=== PATIENT | female | born 1995 | race Caucasian/White ===

== ENCOUNTER 2019-08-29 01:25 | Day surgery (SDC) | payer OTHER, SELFPAY ==
[2019-08-23 15:31] VITALS: BMI 31.8
[2019-08-29 08:40] VITALS: BP 149/103; PULSE 86; RESP 18; TEMP 36.6; O2SAT 100
[2019-08-29 09:13] VITALS: BMI 32.0
--- NOTE | 2019-08-29 09:14 | WPDANESEPPF ---
Anes - Initial Pre Proc Eval Procedure: Operation Date: 08/29/19 10:00 Proposed Procedures p Esophagogastroduodenoscopy - Rustam Frias MD Date/Time: 08/29/19 09:14 Surgeon: Rustam Frias MD Pre Op Diagnosis: Dysphagia Patient Data Age: 24 Gender: F Height: 5 ft 9 in Weight: 98 kg Allergies Allergy/AdvReac Type Severity Reaction Status Date / Time artifical vitamin d Allergy Mild rash Uncoded 08/29/19 09:03 bees Allergy Mild rash Uncoded 08/29/19 09:03 Home Medications Medication Instructions Recorded Confirmed Type albuterol sulfate 90 mcg/actuation 1 puff INHALATION Q4H PRN #18 gm 07/18/19 08/29/19 Rx aerosol inhaler fluticasone propionate 50 1 spray NASAL DAILY 07/18/19 08/29/19 History mcg/actuation nasal spray,suspension levothyroxine 112 mcg tablet 112 mcg PO .COMPLEX #34 tablet 07/18/19 08/29/19 Rx norethindrone 1 mg-ethinyl 1 tablet PO DAILY #84 tablet 07/18/19 08/29/19 Rx estradiol 20 mcg (21)-iron 75 mg (7) tablet Patient hx anesthesia problems: none Family hx anesthesia problems: none PMFSH Past Medical History Medical History Adult hypothyroidism Allergic asthma Pericarditis Family History Family History Mother Family history of thyroid disease, Onset Age: 48 Ulcerative (chronic) enterocolitis Grandparent Crohn disease Social History Social History Smoking status: Never smoker Second hand tobacco smoke exposure: No Alcohol intake: never Substance use: never Substance use type: does not use Gender identity (if verbalized by the patient): Female Anes - Eval Final PreProcedure Day of Procedure 08/29/19 09:14 Patient weight: obese Heart: regular rate and rhythm Lungs: clear to auscultation Airway: Mallampati scale class II Neurological: alert and oriented Last oral intake: >/= 8 hours ASA classification: II Emergent: no Anesthetic plan: proceed Anesthesia type and monitoring: general GIVS and standard monitoring Informed Consent: The patient's anesthetic plan and its attendant risks and benefits were discussed with the patient/family/POA. Questions were solicited and answers provided to the satisfaction of the patient/family/POA.
[2019-08-29] MEDS: LACTATED RINGERS 1,000 ML 150 ML IV CONT (09:19)
--- NOTE | 2019-08-29 09:42 | PM.HPGS ---
History of Present Illness History of Present Illness Consent: Risks, benefits, and alternatives have been discussed and questions answered. Patient agrees to proceed with procedure. Chief complaint: Dysphagia Narrative: Roseanna Son is a 24 year old female dysphagia for few years. Review of Systems Constitutional: Constitutional: Denies headache(s) and Denies weakness Eyes: Eyes: Denies blurry vision ENT: Reports Normal hearing present, Denies headache(s) and Denies neck pain Cardiovascular: Cardiovascular: Denies chest pain and Denies dyspnea Respiratory: Respiratory: Denies dyspnea Gastrointestinal: Gastrointestinal: Reports no additional gastrointestinal complaints Genitourinary: Genitourinary: Denies dysuria Musculoskeletal: Musculoskeletal: Denies neck pain Integumentary/Breasts: Skin/Breast: Denies dry skin Neurologic: Reports Normal hearing present, Denies headache(s) and Denies weakness Psychiatric: Psychiatric: Denies anxiety Endocrine: Endocrine: Denies change in body appearance Hematologic/Lymphatic: Hematologic/Lymphatic: Denies easy bleeding Allergic/Immunologic: Allergic/Immunologic: Denies urticaria PMF Past Medical History Medical History Adult hypothyroidism Allergic asthma Pericarditis Family History Family History Mother Family history of thyroid disease, Onset Age: 48 Ulcerative (chronic) enterocolitis Grandparent Crohn disease Social History Social History Smoking status: Never smoker Second hand tobacco smoke exposure: No Alcohol intake: never Substance use: never Substance use type: does not use Gender identity (if verbalized by the patient): Female Meds Home Medications and Allergies Home Medications Medication Instructions Recorded Confirmed Type albuterol sulfate 90 mcg/actuation 1 puff INHALATION Q4H PRN #18 gm 07/18/19 08/29/19 Rx aerosol inhaler fluticasone propionate 50 1 spray NASAL DAILY 07/18/19 08/29/19 History mcg/actuation nasal spray,suspension levothyroxine 112 mcg tablet 112 mcg PO .COMPLEX #34 tablet 07/18/19 08/29/19 Rx norethindrone 1 mg-ethinyl 1 tablet PO DAILY #84 tablet 07/18/19 08/29/19 Rx estradiol 20 mcg (21)-iron 75 mg (7) tablet Allergies Allergy/AdvReac Type Severity Reaction Status Date / Time artifical vitamin d Allergy Mild rash Uncoded 08/29/19 09:03 bees Allergy Mild rash Uncoded 08/29/19 09:03 Exam Const: General: comfortable and no acute distress HENMT: General nose exam: Normal nares present Eyes: General: appearance normal, both eyes and all related structures Neck: Neck: no JVD Resp: Auscultation: clear to auscultation bilaterally Cardio: Rate: regular rate Rhythm: regular rhythm GI: Inspection: non-distended GI Palp: Yes Soft to palpation Skin: General skin exam: normal color Neuro: General: gait normal Speech: normal speech Extrem: General: normal to inspection Psych: Mental Status: mental status grossly normal Assessment and Plan Assessment and plan (1) Dysphagia: Qualifiers: Dysphagia type: unspecified Qualified Code(s): R13.10 - Dysphagia, unspecified Code(s): R13.10 - Dysphagia, unspecified Status: Acute Assessment and Plan: will do egd, consider random biopsies (2) Indigestion: Code(s): K30 - Functional dyspepsia Status: Acute
[2019-08-29 10:00] VITALS: BP 119/72; PULSE 91; RESP 27; O2SAT 99
[2019-08-29 10:10] VITALS: BP 143/105; PULSE 95; RESP 25; O2SAT 97
[2019-08-29 10:20] VITALS: BP 122/81; PULSE 72; RESP 21; O2SAT 98
== END 2019-08-29 10:37 | disposition home or self-care (01) ==
PROVIDERS: PCP Family Medicine; Visit Provider Internal Medicine Gastroenterology
PROC: 0DJ08ZZ Inspection of Upper Intestinal Tract, Via Natural or Artificial Opening Endoscopic (ICD-10-PCS; CPT 43235; principal; 2019-08-29 10:00)
DX: K22.2 Esophageal obstruction (principal); K29.50 Unspecified chronic gastritis without bleeding; E03.9 Hypothyroidism, unspecified; J45.909 Unspecified asthma, uncomplicated; E66.9 Obesity, unspecified; Z68.32 Body mass index [BMI] 32.0-32.9, adult
CPT/HCPCS: 43239; 88305; 88342; J2704; J7120

== ENCOUNTER 2019-09-21 10:19 | Outpatient (CLI) | payer OTHER, SELFPAY ==
[2019-09-21 11:58] LABS: Thyroid Stimulating Hormone 0.902 uIU/mL (0.465-4.680); Total Triiodothyronine (T3) 1.96 NG/ML (0.97-1.69)
[2019-09-21 12:17] LABS: Free T4 Free Thyroxine 1.42 ng/mL (0.78-2.19)
== END 2019-09-21 10:20 | disposition home or self-care (01) ==
PROVIDERS: PCP Family Medicine; Visit Provider Family Medicine
DX: E04.9 Nontoxic goiter, unspecified (principal); E03.9 Hypothyroidism, unspecified
CPT/HCPCS: 36415; 84439; 84443; 84480

== ENCOUNTER 2019-11-28 00:21 | Day surgery (SDC) | payer OTHER, SELFPAY ==
[2019-11-24 09:00] VITALS: BMI 31.8
[2019-11-28 09:21] VITALS: BP 153/91; PULSE 88; RESP 18; TEMP 36.6; O2SAT 99
[2019-11-28] MEDS: LACTATED RINGERS 1,000 ML 150 ML IV CONT (09:38)
--- NOTE | 2019-11-28 10:27 | WPDANESEPPF ---
Anes - Initial Pre Proc Eval Procedure: Operation Date: 11/28/19 10:30 Proposed Procedures p Esophagogastroduodenoscopy - Rustam Frias MD Date/Time: 11/28/19 10:27 Surgeon: Rustam Frias MD Pre Op Diagnosis: Dysphagia Patient Data Age: 24 Gender: F Height: 5 ft 9 in Weight: 97.1 kg Last Vital Signs Temp 36.6 C 11/28/19 09:21 Pulse 88 11/28/19 09:21 Resp 18 11/28/19 09:21 BP 153/91 H 11/28/19 09:21 Pulse Ox 99 11/28/19 09:21 Allergies Allergy/AdvReac Type Severity Reaction Status Date / Time artifical vitamin d Allergy Mild rash Uncoded 11/28/19 09:20 bees Allergy Mild rash Uncoded 11/28/19 09:20 Home Medications Medication Instructions Recorded Confirmed Type albuterol sulfate 90 mcg/actuation 1 puff INHALATION Q4H PRN #18 gm 07/18/19 11/24/19 Rx aerosol inhaler fluticasone propionate 50 1 spray NASAL DAILY 07/18/19 11/24/19 History mcg/actuation nasal spray,suspension levothyroxine 112 mcg tablet 112 mcg PO .COMPLEX #34 tablet 07/18/19 11/24/19 Rx norethindrone 1 mg-ethinyl 1 tablet PO DAILY #84 tablet 07/18/19 11/24/19 Rx estradiol 20 mcg (21)-iron 75 mg (7) tablet omeprazole 20 mg capsule,delayed 20 mg PO BID #60 cap 08/31/19 11/24/19 Rx release clindamycin phosphate 1 % topical 1 applic TOPICAL BID #60 ml 09/21/19 11/24/19 Rx solution Patient hx anesthesia problems: none Family hx anesthesia problems: none PMFSH Past Medical History Medical History Adult hypothyroidism Allergic asthma Dysphagia Esophageal ring Pericarditis Family History Family History Mother Family history of thyroid disease, Onset Age: 48 Ulcerative (chronic) enterocolitis Grandparent Crohn disease Social History Social History Social History: Smoking status: Never smoker Second hand tobacco smoke exposure: No Alcohol intake: never Substance use: never Substance use type: does not use Gender identity (if verbalized by the patient): Female Anes - Eval Final PreProcedure Day of Procedure 11/28/19 10:27 Patient weight: obese Heart: regular rate and rhythm Lungs: clear to auscultation Airway: Mallampati scale class II Neurological: alert and oriented Last oral intake: >/= 8 hours ASA classification: II Emergent: no Anesthetic plan: proceed Anesthesia type and monitoring: general GIVS and standard monitoring Informed Consent: The patient's anesthetic plan and its attendant risks and benefits were discussed with the patient/family/POA. Questions were solicited and answers provided to the satisfaction of the patient/family/POA.
--- NOTE | 2019-11-28 11:16 | PM.HPGS ---
History of Present Illness History of Present Illness Consent: Risks, benefits, and alternatives have been discussed and questions answered. Patient agrees to proceed with procedure. Chief complaint: Dysphagia Narrative: Roseanna Son is a 24 year old female gerd and dysphagia better with egd, had esophageal ring dilated several weeks ago Review of Systems Constitutional: Constitutional: Denies headache(s) and Denies weakness Eyes: Eyes: Denies blurry vision ENT: Reports Normal hearing present, Denies headache(s) and Denies neck pain Cardiovascular: Cardiovascular: Denies chest pain and Denies dyspnea Respiratory: Respiratory: Denies dyspnea Gastrointestinal: Gastrointestinal: Reports no additional gastrointestinal complaints Genitourinary: Genitourinary: Denies dysuria Musculoskeletal: Musculoskeletal: Denies neck pain Integumentary/Breasts: Skin/Breast: Denies dry skin Neurologic: Reports Normal hearing present, Denies headache(s) and Denies weakness Psychiatric: Psychiatric: Denies anxiety Endocrine: Endocrine: Denies change in body appearance Hematologic/Lymphatic: Hematologic/Lymphatic: Denies easy bleeding Allergic/Immunologic: Allergic/Immunologic: Denies urticaria PMFSH Past Medical History Medical History Adult hypothyroidism Allergic asthma Dysphagia Esophageal ring Pericarditis Family History Family History Mother Family history of thyroid disease, Onset Age: 48 Ulcerative (chronic) enterocolitis Grandparent Crohn disease Social History Social History Social History: Smoking status: Never smoker Second hand tobacco smoke exposure: No Alcohol intake: never Substance use: never Substance use type: does not use Gender identity (if verbalized by the patient): Female Meds Home Medications and Allergies Home Medications Medication Instructions Recorded Confirmed Type albuterol sulfate 90 mcg/actuation 1 puff INHALATION Q4H PRN #18 gm 07/18/19 11/24/19 Rx aerosol inhaler fluticasone propionate 50 1 spray NASAL DAILY 07/18/19 11/24/19 History mcg/actuation nasal spray,suspension levothyroxine 112 mcg tablet 112 mcg PO .COMPLEX #34 tablet 07/18/19 11/24/19 Rx norethindrone 1 mg-ethinyl 1 tablet PO DAILY #84 tablet 07/18/19 11/24/19 Rx estradiol 20 mcg (21)-iron 75 mg (7) tablet omeprazole 20 mg capsule,delayed 20 mg PO BID #60 cap 08/31/19 11/24/19 Rx release clindamycin phosphate 1 % topical 1 applic TOPICAL BID #60 ml 09/21/19 11/24/19 Rx solution Allergies Allergy/AdvReac Type Severity Reaction Status Date / Time artifical vitamin d Allergy Mild rash Uncoded 11/28/19 09:20 bees Allergy Mild rash Uncoded 11/28/19 09:20 Vital Signs Vital Signs - 24 hr 11/28/19 09:21 Temperature 97.9 F Pulse Rate 88 Respiratory Rate 18 Blood Pressure 153/91 H Pulse Oximetry 99 Exam Const: General: comfortable and no acute distress HENMT: General nose exam: Normal nares present Eyes: General: appearance normal, both eyes and all related structures Neck: Neck: no JVD Resp: Auscultation: clear to auscultation bilaterally Cardio: Rate: regular rate Rhythm: regular rhythm GI: Inspection: non-distended GI Palp: Yes Soft to palpation Skin: General skin exam: normal color Neuro: General: gait normal Speech: normal speech Extrem: General: normal to inspection Psych: Mental Status: mental status grossly normal Assessment and Plan Assessment and plan (1) Esophageal ring: Code(s): K22.2 - Esophageal obstruction Status: Acute Assessment and Plan: egd, possible dilation (2) Dysphagia: Qualifiers: Dysphagia type: unspecified Qualified Code(s): R13.10 - Dysphagia, unspecified Code(s): R13.10 - Dysp
[2019-11-28 11:31] VITALS: BP 109/55; PULSE 82; RESP 26; O2SAT 99
[2019-11-28 11:41] VITALS: BP 116/60; PULSE 76; RESP 22; O2SAT 99
[2019-11-28 11:51] VITALS: BP 123/75; PULSE 71; RESP 23; O2SAT 99
== END 2019-11-28 12:13 | disposition home or self-care (01) ==
PROVIDERS: PCP Family Medicine; Visit Provider Internal Medicine Gastroenterology
PROC: 0DJ08ZZ Inspection of Upper Intestinal Tract, Via Natural or Artificial Opening Endoscopic (ICD-10-PCS; CPT 43235; principal; 2019-11-28 10:30)
DX: K22.2 Esophageal obstruction (principal); E03.9 Hypothyroidism, unspecified; J45.909 Unspecified asthma, uncomplicated; E66.9 Obesity, unspecified; Z68.31 Body mass index [BMI] 31.0-31.9, adult
CPT/HCPCS: 43249; 88305; C1726; J2704; J7120

== ENCOUNTER 2019-11-29 12:16 | Outpatient (CLI) | payer OTHER, SELFPAY ==
--- NOTE | ~2019-11-29 | XR_ITS ---
EXAMINATION: XR chest 2V 11/29/2019 12:30 INDICATION: Cough PROCEDURE: 2 view chest COMPARISON: 06/29/2018 FINDINGS: The lungs are clear. The cardiomediastinal silhouette is within normal limits. There are no pleural effusions. There is no pneumothorax suspected. IMPRESSION: 1: NO ACUTE CARDIOPULMONARY DISEASE. Reviewed, dictated and finalized at location A.
== END 2019-11-29 12:17 | disposition home or self-care (01) ==
LOC: ANHIMG 12:18
PROVIDERS: PCP Family Medicine; Visit Provider Family Medicine
DX: R05 Cough (principal)
CPT/HCPCS: 71046

== ENCOUNTER 2020-01-19 09:56 | Outpatient (CLI) | payer OTHER, SELFPAY ==
[2020-01-19 11:12] LABS: Free T4 Free Thyroxine 1.23 ng/mL (0.78-2.19)
== END 2020-01-19 09:57 | disposition home or self-care (01) ==
LOC: ANHLAB 09:58
PROVIDERS: PCP Family Medicine; Visit Provider Family Medicine
DX: E04.9 Nontoxic goiter, unspecified (principal); E03.9 Hypothyroidism, unspecified
CPT/HCPCS: 36415; 84439; 84443

== ENCOUNTER 2020-05-14 14:37 | Outpatient (CLI) | payer OTHER, SELFPAY ==
[2020-05-14 15:42] LABS: Free T4 Free Thyroxine 2.01 ng/mL (0.78-2.19)
== END 2020-05-14 14:38 | disposition home or self-care (01) ==
LOC: ANHLAB 14:39
PROVIDERS: PCP Family Medicine; Visit Provider Physician Assistant
DX: E03.9 Hypothyroidism, unspecified (principal)
CPT/HCPCS: 36415; 84439; 84443

== ENCOUNTER 2020-09-05 19:22 | Emergency (ER) | payer OTHER, SELFPAY ==
[2020-09-05 19:47] VITALS: BP 158/98; PULSE 102; RESP 20; TEMP 37.1; O2SAT 100
[2020-09-05 22:38] VITALS: BP 129/88; PULSE 86; TEMP 36.4; O2SAT 100
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
== END 2020-09-05 23:06 | disposition home or self-care (01) ==
PROVIDERS: Emergency Provider Family Medicine; PCP Family Medicine
DX: T59.811A Toxic effect of smoke, accidental (unintentional), initial encounter (principal); E03.9 Hypothyroidism, unspecified; J45.909 Unspecified asthma, uncomplicated
CPT/HCPCS: 99281

== ENCOUNTER 2021-07-31 09:58 | Outpatient (CLI) | payer OTHER, SELFPAY ==
[2021-07-31 10:18] LABS: Basophils Absolute Auto 0.1 K/mm3 (0.0-0.1); Basophils Percent Auto 1.1 % (0.2-1.2); Eosinophils Absolute Auto 0.8 K/mm3 (0-0.3); Eosinophils Percent Auto 8.3 % (0-4.4); Hematocrit 42.5 % (37.0-47.0); Hemoglobin 13.9 g/dL (12.0-15.0); Immature Granulocyte Absolute 0.03 K/mm3 (0.00-0.031); Immature Granulocyte Percent A 0.3 % (0-0.5); Lymphocytes Absolute Auto 2.83 K/mm3 (0.9-3.2); Lymphocytes Percent Auto 31.2 % (18.3-44.2); Mean Corpuscular HGB Conc 32.7 g/dl (32-36); Mean Corpuscular Hemoglobin 27.8 pg (26-34); Mean Platelet Volume 9.3 fl (7.4-10.4); Monocytes Absolute Auto 0.7 K/mm3 (0.1-0.6); Monocytes Percent Auto 8.2 % (2.6-8.5); Neutrophils Absolute Auto 4.6 K/mm3 (1.3-6.7); Neutrophils Percent Auto 50.9 % (45.5-73.1); Platelet Count Result 366 k/mm3 (150-375); Red Cell Distribution Width 12.2 % (11.5-14.5); White Blood Count 9.1 K/mm3 (4.5-10.0)
[2021-07-31 10:45] LABS: Alanine Aminotransferase 27 U/L (4-35); Albumin Level 4.8 g/dL (3.5-5.1); Alkaline Phosphatase 49 U/L (38-126); Anion Gap 11 mmol/L (8-16); Aspartate Amino Transferase 28 U/L (14-36); Bilirubin,Total 0.6 mg/dL (0.2-1.3); Blood Urea Nitrogen 13 mg/dL (7-17); Calcium 9.2 mg/dL (8.4-10.2); Carbon Dioxide 26 mmol/L (22-30); Chloride 101 mmol/L (98-107); Estimated Glomerular Filt Rate > 60; Glucose 94 mg/dL (65-110); Potassium 4.2 mmol/L (3.4-5.0); Sodium 138 mmol/L (137-145)
[2021-07-31 11:18] LABS: Total Triiodothyronine (T3) 1.53 NG/ML (0.97-1.69)
[2021-07-31 11:24] LABS: Free T4 Free Thyroxine 1.57 ng/mL (0.78-2.19)
== END 2021-07-31 09:59 | disposition home or self-care (01) ==
PROVIDERS: PCP Family Medicine; Visit Provider Family Medicine
DX: E03.9 Hypothyroidism, unspecified (principal); I10 Essential (primary) hypertension
CPT/HCPCS: 36415; 80053; 84439; 84443; 84480; 85025

== ENCOUNTER 2021-09-15 02:27 | Emergency (ER) | payer OTHER, SELFPAY ==
[2021-09-15 02:35] VITALS: BP 140/94; PULSE 93; RESP 18; TEMP 36.9; O2SAT 100
[2021-09-15] MEDS: IBUPROFEN 400 MG TABLET PO (02:53)
[2021-09-15] MEDS: ACETAMINOPHEN 325 MG TABLET 650 MG PO (02:53)
--- NOTE | 2021-09-15 02:56 | ED.GENADULT ---
HPI - General Adult General Chief complaint: Unspecified Stated complaint: swollen uvula, migraine Time Seen by Provider: 09/15/21 02:35 Source: patient, family and RN notes reviewed History of Present Illness HPI narrative: 26-year-old female presenting to the emergency department for evaluation of cute onset of sore throat. Patient states that she woke up from sleep with a sore throat and noticed that her uvula was swollen. Patient does report sore throat but denies any difficulty swallowing or breathing. Patient reports she does snore. Related Data Allergies Allergy/AdvReac Type Severity Reaction Status Date / Time artifical vitamin d Allergy Mild rash Uncoded 07/31/21 09:00 bees Allergy Mild rash Uncoded 07/31/21 09:00 Review of Systems Review of Systems: CONSTITUTIONAL: Denies fever, chills, or sweats. EYES: Denies visual changes, redness, or discharge. ENT: sore throat CARDIOVASCULAR: Denies chest pain, palpitations, or edema. RESPIRATORY: Denies cough or dyspnea. GASTROINTESTINAL: Denies abdominal pain, nausea, vomiting, or diarrhea. GENITOURINARY: Denies dysuria or hematuria. SKIN: Denies rash or itching. MUSCULOSKELETAL: Denies back pain, joint pain, or myalgia. NEUROLOGIC: Denies headache, numbness, or weakness. All systems reviewed & are unremarkable except as noted in HPI and below PMFSH Past Medical History Medical History Adult hypothyroidism Allergic asthma Dysphagia Esophageal ring BRANDON (generalized anxiety disorder) Pericarditis Family History Family History Mother Family history of thyroid disease, Onset Age: 48 Ulcerative (chronic) enterocolitis Grandparent Crohn disease Social History Social History (Updated 07/31/21 @ 09:01 by Trudy Fuentes) Social History: Smoking status: Never smoker Second hand tobacco smoke exposure: No Alcohol intake: never Substance use: never Substance use type: does not use Gender identity (if verbalized by the patient): Female Sexual Orientation (if Verbalized by the Patient): Straight or Heterosexual Exam Narrative: APPEARANCE: Well appearing, no pain, no distress, well-nourished. HEAD: normocephalic, atraumatic. EYES: PERRLA/EOMI, conjunctivae clear. NOSE: Normal no drainage EARS:TMS clear with good light reflex. THROAT: Ecchymosis to distal uvula, no posterior pharynx swelling. No edema. NECK: Supple. No adenopathy, no masses. RESPIRATORY: Airway patent, respirations nonlabored. Clear to auscultation bilaterally, no rales, rhonchi, wheezing. CARDIOVASCULAR: Regular rate and rhythm without murmurs rubs or gallops. Course Course Emergency Course: Patient was updated on the diagnosis of strep throat. Patient was started on antibiotics in the emergency room. Patient was discharged home with antibiotics as well. Patient was updated on the treatment plan for home and on the importance of close follow-up with a primary care physician. All question concerns were addressed. Patient was in no distress at time of discharge from the emerge department Vital Signs Vital signs: Vital Signs Temperature 98.4 F 09/15/21 02:35 Pulse Rate 93 09/15/21 02:35 Respiratory Rate 18 09/15/21 02:35 Blood Pressure 140/94 H 09/15/21 02:35 Pulse Oximetry 100 09/15/21 02:35 Temperature 98.4 F 09/15/21 02:35 Pulse Rate 93 09/15/21 02:35 Respiratory Rate 14 09/15/21 03:25 Blood Pressure 140/94 H 09/15/21 02:35 Pulse Oximetry 100 09/15/21 02:35 Medical Decision Making Vital Signs Vital Signs: Vital Signs Temperature 98.4 F 09/15/21 02:35 Pulse Rate 93 09/15/21 02:35 Respiratory Rate 18 09/15/21 02:35 Blood Pressure 140/94 H 09/15/21 02:35 Pulse Oximetry 100 09/15/21 02:35 Temperature 98.4 F 09/15/21 02:35 Pulse Rate 93 09/15/21 02:35 Respiratory Rate 14 09/15/21 03:25
[2021-09-15] MEDS: AMOXICILLIN 500 MG CAPSULE PO (03:19)
[2021-09-15 03:25] VITALS: RESP 14
--- NOTE | 2021-09-20 13:50 | ED.GENADULT ---
HPI - General Adult General Chief complaint: Unspecified Stated complaint: swollen uvula, migraine Time Seen by Provider: 09/15/21 02:35 Source: patient, family and RN notes reviewed History of Present Illness HPI narrative: 26-year-old female presenting to the emergency department for evaluation of a sore throat. Patient states she woke up in the middle the night with a sore throat and also noticed that her uvula was swollen. Patient denies any difficulty breathing or swallowing. Patient denies any associated fevers. Patient states she does snore but does not snore loudly. Patient does not know if she has sleep apnea. Related Data Allergies Allergy/AdvReac Type Severity Reaction Status Date / Time artifical vitamin d Allergy Mild rash Uncoded 07/31/21 09:00 bees Allergy Mild rash Uncoded 07/31/21 09:00 Review of Systems Review of Systems: Sore throat, uvular swelling. Patient denies any chest pain or shortness breath. CONSTITUTIONAL: Denies fever, chills, or sweats. EYES: Denies visual changes, redness, or discharge. ENT: Denies rhinorrhea, congestion, sore throat, or otalgia. CARDIOVASCULAR: Denies chest pain, palpitations, or edema. RESPIRATORY: Denies cough or dyspnea. GASTROINTESTINAL: Denies abdominal pain, nausea, vomiting, or diarrhea. GENITOURINARY: Denies dysuria or hematuria. SKIN: Denies rash or itching. MUSCULOSKELETAL: Denies back pain, joint pain, or myalgia. All systems reviewed & are unremarkable except as noted in HPI and below PMFSH Past Medical History Medical History Adult hypothyroidism Allergic asthma Dysphagia Esophageal ring BRANDON (generalized anxiety disorder) Pericarditis Family History Family History Mother Family history of thyroid disease, Onset Age: 48 Ulcerative (chronic) enterocolitis Grandparent Crohn disease Social History Social History (Updated 07/31/21 @ 09:01 by Trudy Fuentes) Social History: Smoking status: Never smoker Second hand tobacco smoke exposure: No Alcohol intake: never Substance use: never Substance use type: does not use Gender identity (if verbalized by the patient): Female Sexual Orientation (if Verbalized by the Patient): Straight or Heterosexual Exam Narrative: APPEARANCE: Well appearing, no pain, no distress, well-nourished. HEAD: normocephalic, atraumatic. EYES: PERRLA/EOMI, conjunctivae clear. NOSE: Normal no drainage EARS:TMS clear with good light reflex. THROAT: Normal posterior pharynx. Patient's uvula does have some minor ecchymosis distally. No significant uvular hydrops. No airway obstruction. NECK: Supple. No adenopathy, no masses. RESPIRATORY: Airway patent, respirations nonlabored. Clear to auscultation bilaterally, no rales, rhonchi, wheezing. CARDIOVASCULAR: Regular rate and rhythm without murmurs rubs or gallops. ABDOMINAL: Soft, nontender, nondistended, normal bowel sounds Course Course Emergency Course: Patient was started antibiotics for strep throat. Vital Signs Vital signs: Vital Signs Temperature 98.4 F 09/15/21 02:35 Pulse Rate 93 09/15/21 02:35 Respiratory Rate 18 09/15/21 02:35 Blood Pressure 140/94 H 09/15/21 02:35 Pulse Oximetry 100 09/15/21 02:35 Temperature 98.4 F 09/15/21 02:35 Pulse Rate 93 09/15/21 02:35 Respiratory Rate 14 09/15/21 03:25 Blood Pressure 140/94 H 09/15/21 02:35 Pulse Oximetry 100 09/15/21 02:35 Medical Decision Making Vital Signs Vital Signs: Vital Signs Temperature 98.4 F 09/15/21 02:35 Pulse Rate 93 09/15/21 02:35 Respiratory Rate 18 09/15/21 02:35 Blood Pressure 140/94 H 09/15/21 02:35 Pulse Oximetry 100 09/15/21 02:35 Temperature 98.4 F 09/15/21 02:35 Pulse Rate 93 09/15/21 02:35 Respiratory Rate 14 09/15/21 03:25 Blood Pressure 140/94 H 09/15/21 02:35 Pulse Oximetry 100
== END 2021-09-15 03:25 | disposition home or self-care (01) ==
PROVIDERS: Emergency Provider Emergency Medicine; PCP Family Medicine
DX: J02.0 Streptococcal pharyngitis (principal); E03.9 Hypothyroidism, unspecified; J45.909 Unspecified asthma, uncomplicated; F41.1 Generalized anxiety disorder
CPT/HCPCS: 87880; 99283; A9270

== ENCOUNTER 2022-10-19 15:34 | Outpatient (CLI) | payer BC, SELFPAY ==
[2022-10-19 16:13] LABS: Basophils Absolute Auto 0.1 K/mm3 (0.0-0.1); Basophils Percent Auto 0.7 % (0.2-1.2); Eosinophils Absolute Auto 0.6 K/mm3 (0-0.3); Eosinophils Percent Auto 5.3 % (0-4.4); Hematocrit 38.6 % (37.0-47.0); Hemoglobin 12.8 g/dL (12.0-15.0); Immature Granulocyte Absolute 0.02 K/mm3 (0.00-0.031); Immature Granulocyte Percent A 0.2 % (0-0.5); Lymphocytes Percent Auto 33.2 % (18.3-44.2); Mean Corpuscular HGB Conc 33.2 g/dl (32-36); Mean Corpuscular Volume 84.5 fl (80-100); Mean Platelet Volume 9.4 fl (7.4-10.4); Monocytes Absolute Auto 0.7 K/mm3 (0.1-0.6); Monocytes Percent Auto 6.5 % (2.6-8.5); Neutrophils Absolute Auto 5.7 K/mm3 (1.3-6.7); Neutrophils Percent Auto 54.1 % (45.5-73.1); Platelet Count Result 380 k/mm3 (150-375); Red Blood Count 4.57 M/mm3 (4.2-5.4); Red Cell Distribution Width 12.3 % (11.5-14.5); White Blood Count 10.6 K/mm3 (4.5-10.0)
[2022-10-19 16:27] LABS: Alanine Aminotransferase 25 U/L (6-35); Albumin Level 4.6 g/dL (3.5-5.1); Alkaline Phosphatase 54 U/L (38-126); Anion Gap 9 mmol/L (8-16); Aspartate Amino Transferase 23 U/L (14-36); Bilirubin,Total 0.4 mg/dL (0.2-1.3); Blood Urea Nitrogen 15 mg/dL (7-17); Carbon Dioxide 27 mmol/L (22-30); Chloride 101 mmol/L (98-107); Estimated Glomerular Filt Rate > 60; Glucose 96 mg/dL (65-110); Potassium 3.8 mmol/L (3.4-5.0); Sodium 137 mmol/L (137-145)
== END 2022-10-19 15:35 | disposition home or self-care (01) ==
PROVIDERS: PCP Family Medicine; Visit Provider Physician Assistant
DX: E03.9 Hypothyroidism, unspecified (principal); I10 Essential (primary) hypertension; F41.1 Generalized anxiety disorder; Z96.651 Presence of right artificial knee joint
CPT/HCPCS: 36415; 80053; 84443; 85025

== ENCOUNTER → 2023-01-11 13:20 | Outpatient (CLI) | payer BC, SELFPAY ==
--- NOTE | ~2023-01-11 | US_ITS ---
Pelvic ultrasound. Clinical History: First trimester , inconclusive viability Technique: Realtime transabdominal and transvaginal scanning of the pelvis was performed. Color flow Doppler and Doppler spectral analysis were performed. Findings: The uterus is anteverted, and contains an intrauterine gestation. [place]-rump length of 1.5 cm corresponds to an estimated gestational age of 7 weeks 6 days. heart rate is 165 bpm. The right ovary is not visualized. No significant right ovarian or adnexal mass is seen. The left ovary measures 3.7 x 1.9 x 2.4 cm. No significant left ovarian or adnexal mass is seen. There is no evidence of free fluid in the cul de sac. Impression: Live intrauterine gestation with estimated gestational age is 7 weeks 6 days. heart rate is 165 bpm. Sonographic LALITHA is 08/23/2023. Reviewed, dictated and finalized at [facility]. Impression: Live intrauterine gestation with estimated gestational age is 7 weeks 6 days. F etal heart rate is 165 bpm. Sonographic LALITHA is 08/23/2023.
== END ==
PROVIDERS: PCP Family Medicine; Visit Provider Advanced Practice Midwife
DX: O26.851 Spotting complicating pregnancy, first trimester (principal); O36.80X0 Pregnancy with inconclusive fetal viability, not applicable or unspecified; Z3A.01 Less than 8 weeks gestation of pregnancy
CPT/HCPCS: 76801

== ENCOUNTER 2023-02-04 23:28 | Observation (INO) | payer BC, SELFPAY ==
[2023-02-04] VITALS (7 sets, daily range): BP systolic 142–150; BP diastolic 87–100; PULSE 74–86; O2SAT 97–99
[2023-02-05] VITALS (10 sets, daily range): BP systolic 120–126; BP diastolic 72–82; PULSE 55–85; TEMP 37; O2SAT 78–100; BMI 34.0
[2023-02-05 00:34] LABS: Anion Gap 5 mmol/L (8-16); Blood Urea Nitrogen 8 mg/dL (7-17); Calcium 9.4 mg/dL (8.4-10.2); Carbon Dioxide 24 mmol/L (22-30); Chloride 102 mmol/L (98-107); Estimated Glomerular Filt Rate > 60; Glucose 96 mg/dL (65-110); Potassium 3.6 mmol/L (3.4-5.0); Sodium 131 mmol/L (137-145)
[2023-02-05] MEDS: ONDANSETRON INJ 4 MG/2 ML VIAL IV PUSH ×2 (00:34→07:14)
[2023-02-05 01:17] LABS: Appearance Urine Clear (Clear); Bilirubin Urine Negative (Negative); Blood Urine Negative (Negative); Color Urine Yellow (Yellow); Glucose Urine UA 3+ mg/dL (Negative); Ketones Urine 2+ mg/dL (Negative); Leukocyte Esterase Ur Negative LEU/UL (Negative); Nitrate Urine Negative (Negative); Protein Urine Negative (Negative); Specific Grav Ur 1.024 (1.001-1.035)
[2023-02-05 01:25] LABS: Add Urine Microscopic? NO
--- NOTE | 2023-02-05 01:28 | PC.NURSE ---
Dr Ring called via com writer and is informed of lab results, pt unable to void until after 1L administered. Orders to administer D5NS 200mL/hr and that she will round on her in the morning.
[2023-02-05] MEDS: DEXTROSE 5%/0.9% SOD CHL 1,000 ML 200 ML IV CONT (02:00)
[2023-02-05] MEDS: DEXTROSE 5%/LACTATED RINGERS 1,000 ML 999 ML XX (02:13)
--- NOTE | 2023-02-05 07:16 | P.PNOB_ITS ---
OB - Triage/Final Diagnosis Visit Information Date of evaluation: 02/05/23 Reason for evaluation: other ( nausea and vomiting x3 days) Comments/Additional reasons for admission: I have assessed the risk for this patient, Roseanna Son, and determined that she would benefit from observation care. Evaluation Laboratory results: Laboratory Tests 02/05/23 00:15 Sodium 131 L Potassium 3.6 Chloride 102 Carbon Dioxide 24 Anion Gap 5 L BUN 8 D Creatinine 0.50 L Estim Creat Clear Calc Not Reportable Estimated GFR > 60 Glucose 96 Calcium 9.4 Urine Color Yellow Urine Appearance Clear Urine pH 6.0 Ur Specific [place] 1.024 Urine Protein Negative Urine Glucose (UA) 3+ H Urine Ketones 2+ H Ur Blood (Man) Negative Urine Nitrate Negative Urine Bilirubin Negative Urine Urobilinogen 1.0 Leukocyte Esterase Rfl Negative Vital signs: Vital Signs - 24 hr 02/04/23 23:38 02/04/23 23:39 02/04/23 23:44 Temperature Pulse Rate 86 Blood Pressure 150/100 H Pulse Oximetry 97 98 02/04/23 23:46 02/04/23 23:49 02/04/23 23:54 Temperature Pulse Rate 74 Blood Pressure 142/87 H Pulse Oximetry 99 98 02/04/23 23:59 02/05/23 00:01 02/05/23 00:04 Temperature Pulse Rate 74 Blood Pressure 124/75 Pulse Oximetry 97 99 02/05/23 00:09 02/05/23 00:14 02/05/23 00:16 Temperature Pulse Rate 70 Blood Pressure 125/82 Pulse Oximetry 100 100 02/05/23 00:19 02/05/23 00:24 02/05/23 00:29 Temperature Pulse Rate Blood Pressure Pulse Oximetry 98 98 98 02/05/23 00:31 02/05/23 07:16 02/05/23 07:16 Temperature Pulse Rate 72 71 Blood Pressure 120/72 126/78 Pulse Oximetry 79 L 78 L 02/05/23 07:16 Temperature 98.6 F Pulse Rate Blood Pressure Pulse Oximetry Comments: The patient called last evening with nausea and vomiting for 3 days. She has been taking Reglan every 6hours without success. She was instructed to come to Labor and delivery for IV fluids and change in her antinausea medicine. The patient received a bolus of D5 LR and was finally able to void and had 2+ ketones after the L. The basic metabolic panel was returned and noted to have a low sodium so fluids were switched to D5 normal saline. Patient was given Zofran. She states she is feeling better this morning and is wanting to try a light breakfast prior to discharge. If diet is tolerated will discharge home with Zofran. Final Diagnosis (1) Nausea and vomiting during : Code(s): O21.9 - Vomiting of , unspecified Status: Acute
--- NOTE | 2023-02-05 07:17 | OBADM ---
This patient, Roseanna Son, admitted to the OB room OB Post 117 for observation on 02/04/23 at 2328. Patient/family oriented to hospital policies and general routines including ID bracelet, bed and alarms, visiting hours, pain management, procedures, bathroom and other care routines, personal items, smoking policy, room service/diet, and visiting hours. Patient/Family are encouraged to report perceived risks to care and to ask questions if they do not understand what they are told or what they should do.
== END 2023-02-05 10:15 | disposition home or self-care (01) ==
PROVIDERS: Admitting Provider Obstetrics & Gynecology Gynecology; PCP Family Medicine; Visit Provider Obstetrics & Gynecology Gynecology
DX: O21.9 Vomiting of pregnancy, unspecified (principal); Z3A.00 Weeks of gestation of pregnancy not specified
CPT/HCPCS: 36415; 80048; 81003; 96374; 96376; G0378; G0379; J2405; J7042; J7121

== ENCOUNTER → 2023-03-22 10:44 | Outpatient (CLI) | payer BC, SELFPAY ==
--- NOTE | ~2023-03-22 | US_ITS ---
EXAMINATION: US OB /maternal detail DATE: 03/22/2023 11:14 INDICATION: anatomic survey. TECHNIQUE: Real-time ultrasound of the pelvis was performed. COMPARISON: Ultrasound 01/11/2023 FINDINGS: There is a single living fetus in vertex presentation. The placenta is posterior, 4.7 cm from the ce rvix. The cervical length is 3.6 cm on transabdominal images, which is normal. heart rate is 14 4 beats per minute (bpm). The amniotic fluid volume is subjectively normal. The following biometric data were obtained: Biparietal diameter (BPD): 4.2 cm; head circumference (HC): 15.5 cm; abdominal circumference (AC): 14 .0 cm; femur length (FL): 2.8 cm. These measurements are concordant. Estimated weight is 261 g +/- 39 g, which correlates with the 91st percentile when 08/23/23 is u sed as estimated date of delivery. As single measurements, these parameters are each equal to the following estimated gestational ages: BPD: 18 weeks 6 days. HC: 18 weeks 3 days. AC: 19 weeks 2 days. FL: 18 weeks 3 days. estimated gestational age based solely on measurements from this exam is 18 weeks 5 days +/- 1 weeks 2 days. The cerebral ventricles, cerebellum, cisterna magna, nuchal fold, lip, and visualized portions of the spine are normal. There is a choroid plexus cyst. The four-chamber heart view is normal. The outflow tracts are not well visualized. The diaphragm, stomach, kidneys, and bladder are normal. There are t wo umbilical arteries to yield a 3-vessel cord. The cord insertion is normal. IMPRESSION: 1. Single living fetus in vertex presentation. 2. Large for gestational age. Estimated weight is 261 g +/- 39 g, which correlates with the 91 st percentile when 08/23/23 is used as estimated date of delivery. This date was set by ultrasound on 01/11/2023. 3. Choroid plexus cyst. 4. Normal four-chamber review. Ventricular outflow tracts not well evaluated. Reviewed, dictated and finalized at location E. IMPRESSION: 1. Single living fetus in vertex presentation. 2. Large for gestational age. Estimated weight is 261 g +/- 39 g, which correlates with the 91st percentile when 08/23/23 is used as estimated date of d elivery. This date was set by ultrasound on 01/11/2023. 3. Choroid plexus cyst. 4. Normal four-chamber review. Ventricular outflow tracts not well evaluated.
== END ==
PROVIDERS: PCP Advanced Practice Midwife; Visit Provider Advanced Practice Midwife
DX: Z36.9 Encounter for antenatal screening, unspecified (principal); Z3A.18 18 weeks gestation of pregnancy
CPT/HCPCS: 76805

== ENCOUNTER → 2023-04-05 13:46 | Outpatient (CLI) | payer BC, SELFPAY ==
--- NOTE | ~2023-04-05 | US_ITS ---
EXAMINATION: US OB follow up DATE: 04/05/2023 14:18 INDICATION: Incomplete anatomic survey. TECHNIQUE: Real-time ultrasound of the pelvis was performed. COMPARISON: Ultrasound 03/22/2023, 01/11/2023 FINDINGS: There is a single living fetus in breech presentation. The placenta is posterior, 1.7 cm from the ce rvix. heart rate is 138 beats per minute (bpm). The amniotic fluid volume is subjectively emma l. The heart including the ventricular outflow tracts is normal. IMPRESSION: 1. Single living fetus in breech presentation. 2. Normal heart. 3. Low-lying placenta. Reviewed, dictated and finalized at location A.
== END ==
PROVIDERS: PCP Obstetrics & Gynecology Gynecology; Visit Provider Obstetrics & Gynecology Gynecology
DX: Z36.2 Encounter for other antenatal screening follow-up (principal); O44.40 Low lying placenta NOS or without hemorrhage, unspecified trimester; Z3A.00 Weeks of gestation of pregnancy not specified
CPT/HCPCS: 76816

== ENCOUNTER → 2023-04-29 11:19 | Outpatient (CLI) | payer BC, SELFPAY ==
--- NOTE | ~2023-04-29 | US_ITS ---
EXAMINATION: US OB limited DATE: 04/29/2023 11:38 INDICATION: Low lying placenta. Estimated gestational age of 23 weeks and 3 days TECHNIQUE: Real-time ultrasound of the pelvis was performed. COMPARISON: Ultrasound 04/05/2023 FINDINGS: There is a single fetus in vertex presentation. The placenta is posterior, 0.7 cm from the cervix. F etal heart rate is 138 beats per minute (bpm). The cervical length is 2.9 cm on transabdominal images , which is normal. The amniotic fluid volume is subjectively normal. IMPRESSION: 1. Single living fetus in vertex presentation. 2. Low-lying placenta. Reviewed, dictated and finalized at location E.
== END ==
PROVIDERS: PCP Obstetrics & Gynecology Gynecology; Visit Provider Obstetrics & Gynecology Gynecology
DX: O44.42 Low lying placenta NOS or without hemorrhage, second trimester (principal); Z3A.00 Weeks of gestation of pregnancy not specified
CPT/HCPCS: 76815

== ENCOUNTER → 2023-05-31 10:49 | Outpatient (CLI) | payer BC, SELFPAY ==
--- NOTE | ~2023-05-31 | US_ITS ---
EXAMINATION: US OB follow up DATE: 05/31/2023 11:13 INDICATION: Low-lying placenta, third trimester november TECHNIQUE: Real-time ultrasound of the pelvis was performed. The interpreting radiologist was not pre sent for the study. COMPARISON: None. FINDINGS: There is a single living fetus in vertex presentation. The placenta is posterior and 3.3 cm from the internal cervical os. The measured cervical length is 3 cm. cardiac activity and feta l movement are noted. heart rate is 143 beats per minute (bpm). The amniotic fluid index is sub jectively normal. The following biometric data were obtained: Biparietal diameter (BPD): 7.4 cm; head circumference (HC): 26.6 cm; abdominal circumference (AC): 23 .9 cm; femur length (FL): 5.3 cm. The femoral length to biparietal diameter ratio is greater than two standard deviations below the joan n. These measurements are otherwise concordant. Estimated weight is 1203 g +/- 180 g, which correlates with the 48th percentile when 08/18/2023 is used as estimated date of delivery. As single measurements, these parameters are each equal to the following estimated gestational ages w ith ranges of +/- 2 standard deviations: BPD: 29 weeks 6 days ( 27 weeks 5 days - 32 weeks 0 days). HC: 29 weeks 0 days ( 26 weeks 6 days - 31 weeks 0 days). AC: 28 weeks 1 days ( 26 weeks 0 days - 30 weeks 3 days). FL: 28 weeks 0 days ( 25 weeks 6 days - 30 weeks 0 days). estimated gestational age based solely on measurements from this exam is 28 weeks 5 days +/- 2 weeks 0 days. IMPRESSION: 1. Single living fetus in vertex presentation. 2. Posterior placenta 3.3 cm from the internal cervical os. 3. Estimated weight is 1203 g +/- 180 g, which correlates with the 48th percentile when 08/18/19 24 is used as estimated date of delivery. 4. Femoral length to biparietal diameter ratio greater than two standard deviations below the mean. Reviewed, dictated and finalized at location B. [employer] IMPRESSION: 1. Single living fetus in vertex presentation. 2. Posterior placenta 3.3 cm from the internal cervical os. 3. Estimated weight is 1203 g +/- 180 g, which correlates with the 48th p ercentile when 08/18/2023 is used as estimated date of delivery. 4. Femoral length to biparietal diameter ratio greater than two standard deviat ions below the mean.
== END ==
PROVIDERS: PCP Obstetrics & Gynecology Gynecology; Visit Provider Obstetrics & Gynecology Gynecology
DX: O44.43 Low lying placenta NOS or without hemorrhage, third trimester (principal); Z3A.28 28 weeks gestation of pregnancy
CPT/HCPCS: 76816

== ENCOUNTER 2023-06-02 18:11 | Observation (INO) | payer BC, SELFPAY ==
[2023-06-02 18:31] VITALS: BP 150/78; PULSE 97
[2023-06-02 18:45] VITALS: BP 140/87; PULSE 91
[2023-06-02 18:49] VITALS: BMI 35.6
[2023-06-02 18:50] LABS: Basophils Absolute Auto 0.1 K/mm3 (0.0-0.1); Basophils Percent Auto 0.4 % (0.2-1.2); Eosinophils Absolute Auto 1.1 K/mm3 (0-0.3); Eosinophils Percent Auto 9.1 % (0-4.4); Hematocrit 33.1 % (37.0-47.0); Hemoglobin 10.7 g/dL (12.0-15.0); Immature Granulocyte Absolute 0.07 K/mm3 (0.00-0.031); Immature Granulocyte Percent A 0.6 % (0-0.5); Lymphocytes Absolute Auto 2.79 K/mm3 (0.9-3.2); Lymphocytes Percent Auto 22.4 % (18.3-44.2); Mean Corpuscular HGB Conc 32.3 g/dl (32-36); Mean Corpuscular Hemoglobin 27.5 pg (26-34); Mean Corpuscular Volume 85.1 fl (80-100); Mean Platelet Volume 9.6 fl (7.4-10.4); Monocytes Absolute Auto 0.8 K/mm3 (0.1-0.6); Monocytes Percent Auto 6.3 % (2.6-8.5); Neutrophils Absolute Auto 7.7 K/mm3 (1.3-6.7); Neutrophils Percent Auto 61.2 % (45.5-73.1); Platelet Count Result 315 k/mm3 (150-375); Red Blood Count 3.89 M/mm3 (4.2-5.4); Red Cell Distribution Width 13.2 % (11.5-14.5); White Blood Count 12.5 K/mm3 (4.5-10.0)
[2023-06-02 18:54] LABS: Appearance Urine Clear (Clear); Bilirubin Urine Negative (Negative); Blood Urine Negative (Negative); Color Urine Yellow (Yellow); Glucose Urine UA Negative (Negative); Ketones Urine Negative (Negative); Leukocyte Esterase Ur Negative LEU/UL (NEGATIVE); Nitrate Urine Negative (Negative); Protein Urine Negative (Negative); Specific Grav Ur 1.014 (1.001-1.035); Urobilinogen Urine 0.2 mg/dL (<2.0)
[2023-06-02 18:57] LABS: Add Urine Microscopic? NO
[2023-06-02 19:00] VITALS: BP 128/76; PULSE 90
[2023-06-02 19:01] LABS: Alanine Aminotransferase 17 U/L (6-35); Albumin Level 3.7 g/dL (3.5-5.1); Alkaline Phosphatase 63 U/L (38-126); Anion Gap 7 mmol/L (8-16); Aspartate Amino Transferase 16 U/L (14-36); Bilirubin,Total 0.3 mg/dL (0.2-1.3); Blood Urea Nitrogen 8 mg/dL (7-17); Calcium 8.9 mg/dL (8.4-10.2); Carbon Dioxide 21 mmol/L (22-30); Chloride 104 mmol/L (98-107); Estimated CRCL calculation 186 ml/min; Estimated Glomerular Filt Rate > 60; Glucose 98 mg/dL (65-110); Potassium 3.7 mmol/L (3.4-5.0); Sodium 132 mmol/L (137-145); Uric Acid 3.4 mg/dL (2.5-7.5)
[2023-06-02 19:04] LABS: Creatinine Urine 75.5 mg/dL; Total Protein Urine Random 17 mg/dL; Ur Ttl Prot Creatinine Ratio 0.23 mg/mg (0-0.20)
[2023-06-02 19:20] VITALS: BP 128/76; PULSE 90
--- NOTE | 2023-06-09 07:54 | P.PNOB_ITS ---
OB - Triage/Final Diagnosis Visit Information Date of evaluation: 06/02/23 Reason for evaluation: threatened labor Comments/Additional reasons for admission: I have assessed the risk for this patient, Roseanna Son, and determined that she would benefit from observation care. Evaluation Laboratory results: Laboratory Tests 06/02/23 18:41 WBC 12.5 H RBC 3.89 L Hgb 10.7 L Hct 33.1 L MCV 85.1 MCH 27.5 MCHC 32.3 RDW 13.2 Plt Count 315 MPV 9.6 Immature Gran % (Auto) 0.6 H Neut % (Auto) 61.2 Lymph % (Auto) 22.4 [place] % (Auto) 6.3 Eos % (Auto) 9.1 H Baso % (Auto) 0.4 Lymph # (Auto) 2.79 [place] # (Auto) 0.8 H Eos # (Auto) 1.1 H Baso # (Auto) 0.1 Abs Immat Gran (auto) 0.07 H Absolute Neuts (auto) 7.7 H Absolute Nucleated RBC 0.0 Nucleated RBC % 0.0 Sodium 132 L Potassium 3.7 Chloride 104 Carbon Dioxide 21 L Anion Gap 7 L BUN 8 Creatinine 0.50 L Estim Creat Clear Calc 186 Estimated GFR > 60 Glucose 98 Uric Acid 3.4 Calcium 8.9 Total Bilirubin 0.3 AST 16 ALT 17 Alkaline Phosphatase 63 Total Protein 7.0 Albumin 3.7 Urine Color Yellow Urine Appearance Clear Urine pH 7.0 Ur Specific [place] 1.014 Urine Protein Negative Urine Glucose (UA) Negative Urine Ketones Negative Ur Blood (Man) Negative Urine Nitrate Negative Urine Bilirubin Negative Urine Urobilinogen 0.2 Ur Leukocyte Esterase Negative U Random Total Protein 17 Urine Creatinine 75.5 Protein/Creat Ratio 2 0.23 H
== END 2023-06-02 19:25 | disposition home or self-care (01) ==
PROVIDERS: Advanced Practice Midwife; Admitting Provider Obstetrics & Gynecology Gynecology; PCP Family Medicine; Visit Provider Obstetrics & Gynecology Gynecology
DX: O47.03 False labor before 37 completed weeks of gestation, third trimester (principal); O26.893 Other specified pregnancy related conditions, third trimester; R10.9 Unspecified abdominal pain; Z3A.28 28 weeks gestation of pregnancy
CPT/HCPCS: 36415; 59025; 80053; 81003; 82570; 84156; 84550; 85025; 87086; G0378; G0379

== ENCOUNTER 2023-07-07 14:40 | Observation (INO) | payer BC, SELFPAY ==
[2023-07-07] VITALS (90 sets, daily range): BP systolic 136–151; BP diastolic 78–90; PULSE 111–140; TEMP 36.8; O2SAT 96–99
[2023-07-07 15:48] LABS: Appearance Urine Cloudy (Clear); Bacteria Urine 1+ /hpf; Bilirubin Urine Negative (Negative); Blood Urine Negative (Negative); Color Urine Yellow (Yellow); Glucose Urine UA Negative (Negative); Ketones Urine 4+ mg/dL (Negative); Leukocyte Esterase Ur Negative LEU/UL (Negative); Need Manual Microscopic Reviewed; Nitrate Urine Negative (Negative); Protein Urine 2+ mg/dL (Negative); RBC Urine 0-2 /hpf (0-2); Specific Grav Ur 1.022 (1.001-1.035); Squamous Epithelial Cell Urine Moderate /hpf (Few); Urobilinogen Urine 0.2 mg/dL (<2.0); pH Urine 5.5 (5.0-9.0)
[2023-07-07 16:26] LABS: Add Urine Microscopic? YES
[2023-07-07] MEDS: DEXTROSE 5%/LACTATED RINGERS 1,000 ML 999 ML IV CONT (16:45)
[2023-07-07] MEDS: ONDANSETRON INJ 4 MG/2 ML VIAL IV PUSH (16:45)
--- NOTE | 2023-07-07 17:38 | OBADM ---
This patient, Roseanna Son, admitted to the OB room OB Post 113 for observation. Patient/family oriented to hospital policies and general routines including ID bracelet, bed and alarms, visiting hours, pain management, procedures, bathroom and other care routines, personal items, smoking policy, room service/diet, and visiting hours. Patient/Family are encouraged to report perceived risks to care and to ask questions if they do not understand what they are told or what they should do.
--- NOTE | 2023-07-07 18:03 | PC.NURSE ---
Addendum entered by Sherry Sierra RN 07/07/23 18:06: spoke with Dr. Ring at 1606. Original Note: notified MD of patient admission with c/o N/V since 0800 and tachy HR. Orders received for 1L D5LR bolus and 1L D5LR @ 150ml/hr after bolus is complete. patient may have zofran if needed for nausea.
[2023-07-07] MEDS: DEXTROSE 5%/LACTATED RINGERS 1,000 ML 150 ML IV CONT (18:11)
--- NOTE | 2023-07-07 20:12 | ECG_ITS ---
Measurements Intervals [place] Rate: 114 P: 33 WV: 119 QRS: 52 QRSD: 84 T: 44 QT: 323 QTc: 446 Interpretive Statements SINUS TACHYCARDIA WITH SHORT WV INTERVAL NONSPECIFIC T-WAVE ABNORMALITY ABNORMAL ECG NO PREVIOUS ECG AVAILABLE FOR COMPARISON Electronically Signed On 07-08-2023 13:55:16 [employer]DOWN WORK[employer] by Jarrod Bai M.D.
[2023-07-07 20:36] LABS: Basophils Percent Auto 0.3 % (0.2-1.2); Eosinophils Absolute Auto 0.1 K/mm3 (0-0.3); Eosinophils Percent Auto 0.3 % (0-4.4); Hemoglobin 10.7 g/dL (12.0-15.0); Immature Granulocyte Percent A 0.7 % (0-0.5); Lymphocytes Absolute Auto 0.88 K/mm3 (0.9-3.2); Lymphocytes Percent Auto 5.9 % (18.3-44.2); Mean Corpuscular HGB Conc 32.4 g/dl (32-36); Mean Corpuscular Hemoglobin 26.6 pg (26-34); Mean Corpuscular Volume 81.9 fl (80-100); Mean Platelet Volume 9.9 fl (7.4-10.4); Monocytes Absolute Auto 0.5 K/mm3 (0.1-0.6); Monocytes Percent Auto 3.1 % (2.6-8.5); Neutrophils Absolute Auto 13.5 K/mm3 (1.3-6.7); Neutrophils Percent Auto 89.7 % (45.5-73.1); Platelet Count Result 325 k/mm3 (150-375); Red Blood Count 4.03 M/mm3 (4.2-5.4); Red Cell Distribution Width 12.8 % (11.5-14.5)
[2023-07-07 20:50] LABS: Alanine Aminotransferase 16 U/L (6-35); Albumin Level 3.6 g/dL (3.5-5.1); Alkaline Phosphatase 90 U/L (38-126); Anion Gap 7 mmol/L (8-16); Aspartate Amino Transferase 18 U/L (14-36); Bilirubin,Total 0.4 mg/dL (0.2-1.3); Blood Urea Nitrogen 7 mg/dL (7-17); Calcium 8.7 mg/dL (8.4-10.2); Carbon Dioxide 19 mmol/L (22-30); Chloride 107 mmol/L (98-107); Estimated Glomerular Filt Rate > 60; Glucose 113 mg/dL (65-110); Potassium 3.7 mmol/L (3.4-5.0); Sodium 133 mmol/L (137-145)
[2023-07-07] MEDS: ONDANSETRON INJ 4 MG/2 ML VIAL 8 MG IV PUSH (22:03)
--- NOTE | 2023-07-09 09:29 | PM.OBTRLD ---
OB - Triage/Final Diagnosis Visit Information Reason for evaluation: other (nausea and vomiting) Comments/Additional reasons for admission: I have assessed the risk for this patient, Roseanna Son, and determined that she would benefit from observation care. Evaluation Laboratory results: Laboratory Tests 07/07/23 07/07/23 07/07/23 15:23 20:19 20:26 WBC 15.0 H RBC 4.03 L Hgb 10.7 L Hct 33.0 L MCV 81.9 MCH 26.6 MCHC 32.4 RDW 12.8 Plt Count 325 MPV 9.9 Immature Gran % (Auto) 0.7 H Neut % (Auto) 89.7 H Lymph % (Auto) 5.9 L [place] % (Auto) 3.1 Eos % (Auto) 0.3 Baso % (Auto) 0.3 Lymph # (Auto) 0.88 L [place] # (Auto) 0.5 Eos # (Auto) 0.1 Baso # (Auto) 0.0 Abs Immat Gran (auto) 0.10 H Absolute Neuts (auto) 13.5 H Absolute Nucleated RBC 0.0 Nucleated RBC % 0.0 Sodium 133 L Potassium 3.7 Chloride 107 Carbon Dioxide 19 L Anion Gap 7 L BUN 7 Creatinine 0.40 L Estim Creat Clear Calc Not Reportable Estimated GFR > 60 Glucose 113 H Calcium 8.7 Total Bilirubin 0.4 AST 18 ALT 16 Alkaline Phosphatase 90 Total Protein 7.0 Albumin 3.6 Urine Color Yellow Urine Appearance Cloudy H Urine pH 5.5 Ur Specific [place] 1.022 Urine Protein 2+ H Urine Glucose (UA) Negative Urine Ketones 4+ H Ur Blood (Man) Negative Urine Nitrate Negative Urine Bilirubin Negative Urine Urobilinogen 0.2 Add Ur Microanalysis Reviewed Leukocyte Esterase Rfl Negative Urine RBC 0-2 Urine WBC 6-10 H Ur Squamous Epith Cells Moderate Urine Bacteria 1+ H Urine Casts 6-10
== END 2023-07-07 22:18 | disposition home or self-care (01) ==
PROVIDERS: Advanced Practice Midwife; Admitting Provider Obstetrics & Gynecology Gynecology; PCP Family Medicine; Visit Provider Obstetrics & Gynecology Gynecology
DX: O21.9 Vomiting of pregnancy, unspecified (principal); O10.019 Pre-existing essential hypertension complicating pregnancy, unspecified trimester; Z3A.33 33 weeks gestation of pregnancy
CPT/HCPCS: 36415; 80053; 81001; 85025; 87086; 93005; 96361; 96374; 96375; G0378; G0379; J2405; J7121

== ENCOUNTER 2023-07-22 09:46 | Outpatient (CLI) | payer BC, SELFPAY ==
[2023-07-22 10:11] VITALS: BP 134/87; PULSE 110
[2023-07-22 10:15] VITALS: BP 139/87; PULSE 102
[2023-07-22 10:16] LABS: Basophils Absolute Auto 0.1 K/mm3 (0.0-0.1); Basophils Percent Auto 0.4 % (0.2-1.2); Eosinophils Absolute Auto 0.7 K/mm3 (0-0.3); Eosinophils Percent Auto 4.7 % (0-4.4); Hematocrit 34.4 % (37.0-47.0); Hemoglobin 10.8 g/dL (12.0-15.0); Immature Granulocyte Absolute 0.08 K/mm3 (0.00-0.031); Immature Granulocyte Percent A 0.6 % (0-0.5); Lymphocytes Absolute Auto 2.18 K/mm3 (0.9-3.2); Lymphocytes Percent Auto 15.6 % (18.3-44.2); Mean Corpuscular HGB Conc 31.4 g/dl (32-36); Mean Corpuscular Hemoglobin 25.9 pg (26-34); Mean Corpuscular Volume 82.5 fl (80-100); Mean Platelet Volume 9.9 fl (7.4-10.4); Monocytes Percent Auto 7.4 % (2.6-8.5); Neutrophils Absolute Auto 9.9 K/mm3 (1.3-6.7); Neutrophils Percent Auto 71.3 % (45.5-73.1); Platelet Count Result 337 k/mm3 (150-375); Red Blood Count 4.17 M/mm3 (4.2-5.4); Red Cell Distribution Width 12.9 % (11.5-14.5); White Blood Count 13.9 K/mm3 (4.5-10.0)
[2023-07-22 10:17] VITALS: BP 134/87; PULSE 102
[2023-07-22 10:27] VITALS: BP 134/87; PULSE 110
[2023-07-22 10:30] VITALS: BP 137/89; PULSE 99
[2023-07-22 10:31] LABS: Chloride 104 mmol/L (98-107)
[2023-07-22 10:37] LABS: Alanine Aminotransferase 15 U/L (6-35); Albumin Level 3.8 g/dL (3.5-5.1); Alkaline Phosphatase 92 U/L (38-126); Anion Gap 10 mmol/L (8-16); Aspartate Amino Transferase 18 U/L (14-36); Bilirubin,Total 0.3 mg/dL (0.2-1.3); Blood Urea Nitrogen 7 mg/dL (7-17); Calcium 9.4 mg/dL (8.4-10.2); Carbon Dioxide 21 mmol/L (22-30); Estimated Glomerular Filt Rate > 60; Glucose 89 mg/dL (65-110); Potassium 4.3 mmol/L (3.4-5.0); Sodium 135 mmol/L (137-145); Uric Acid 3.6 mg/dL (2.5-7.5)
--- NOTE | 2023-07-22 10:43 | PC.NURSE ---
Dr. Ring updated on patient PIH workup/labs and BP's. orders received for patient to discharge home.
== END 2023-07-22 10:46 | disposition home or self-care (01) ==
LOC: ANHOBOP 09:51 → ANHLDR 10:01
PROVIDERS: PCP Family Medicine; Visit Provider Obstetrics & Gynecology Gynecology
DX: O13.9 Gestational [pregnancy-induced] hypertension without significant proteinuria, unspecified trimester (principal); Z3A.00 Weeks of gestation of pregnancy not specified
CPT/HCPCS: 36415; 59025; 80053; 84550; 85025; 99199

== ENCOUNTER 2023-08-14 05:01 | Inpatient (IN) | payer BC, SELFPAY ==
[2023-08-14] VITALS (38 sets, daily range): BP systolic 121–175; BP diastolic 65–108; PULSE 89–114; TEMP 36.2–36.6; BMI 38.0
--- NOTE | 2023-08-14 05:31 | LDADM ---
This patient, Roseanna Son, was admitted to Labor/Delivery/Recovery 105 on 08/14/23 at 05:01. Plans for labor, pain management and were discussed with patient. Patient/family oriented to hospital policies and general routines including ID bracelet, bed and alarms, visiting hours, pain management, procedures, bathroom and other care routines, personal items, smoking policy, room service/diet and guest tray routines, security routines, and visiting hours. Patient/Family are encouraged to report perceived risks to care and to ask questions if they do not understand what they are told or what they should do. See OBIX for further documentation.
[2023-08-14 05:42] LABS: Basophils Absolute Auto 0.1 K/mm3 (0.0-0.1); Basophils Percent Auto 0.4 % (0.2-1.2); Eosinophils Absolute Auto 0.6 K/mm3 (0-0.3); Eosinophils Percent Auto 3.6 % (0-4.4); Hematocrit 33.5 % (37.0-47.0); Hemoglobin 10.5 g/dL (12.0-15.0); Immature Granulocyte Absolute 0.11 K/mm3 (0.00-0.031); Immature Granulocyte Percent A 0.7 % (0-0.5); Lymphocytes Absolute Auto 2.42 K/mm3 (0.9-3.2); Lymphocytes Percent Auto 14.6 % (18.3-44.2); Mean Corpuscular HGB Conc 31.3 g/dl (32-36); Mean Corpuscular Hemoglobin 25.4 pg (26-34); Mean Corpuscular Volume 81.1 fl (80-100); Mean Platelet Volume 10.3 fl (7.4-10.4); Monocytes Percent Auto 5.7 % (2.6-8.5); Neutrophils Absolute Auto 12.5 K/mm3 (1.3-6.7); Platelet Count Result 375 k/mm3 (150-375); Red Blood Count 4.13 M/mm3 (4.2-5.4); Red Cell Distribution Width 13.2 % (11.5-14.5); White Blood Count 16.6 K/mm3 (4.5-10.0)
[2023-08-14] MEDS: miSOPROStol 25 MCG TABLET VAGINAL (05:48)
--- NOTE | 2023-08-14 10:05 | WPDOBADMIT ---
Obstetrics - Admit Note Admission Note: record reviewed. No pertinent additions to the history and/or any subsequent changes in the physical findings that are not consistent with the expected course of the were found. Additions to the history and/or subsequent changes in the physical findings follow. None.
[2023-08-14] MEDS: NIFEdipine 10 MG CAPSULE PO (10:15)
[2023-08-14 10:25] LABS: Alanine Aminotransferase 14 U/L (6-35); Albumin Level 3.8 g/dL (3.5-5.1); Alkaline Phosphatase 97 U/L (38-126); Anion Gap 9 mmol/L (8-16); Aspartate Amino Transferase 17 U/L (14-36); Bilirubin,Total 0.4 mg/dL (0.2-1.3); Blood Urea Nitrogen 7 mg/dL (7-17); Calcium 9.4 mg/dL (8.4-10.2); Carbon Dioxide 20 mmol/L (22-30); Chloride 106 mmol/L (98-107); Estimated Glomerular Filt Rate > 60; Glucose 91 mg/dL (65-110); Potassium 3.9 mmol/L (3.4-5.0); Sodium 135 mmol/L (137-145)
--- NOTE | 2023-08-14 11:16 | PM.OBPNLAB ---
Pain Control Date/time seen: 08/14/23 1000 Pain control: tolerating well Comments: Feeling occasional cramping in her lower back. Denies DOUGLAS, visual changes, RUQ pain, or increase in edema. Contractions Monitor mode: External Contraction pattern: Irregular Status status: Category l Assessment and Plan Assessment: induction ongoing Comments: CNM at bedside. Discussed plan of care. Plan for repeat SVE. Discussed recent BPs and plan for monitoring. Plan CMP and UPC ratio. Dr. Ring aware.
[2023-08-14] MEDS: LABETALOL HCL INJ 100 MG/20 ML VIAL 20 MG IV PUSH (11:20)
--- NOTE | 2023-08-14 11:37 | PM.OBPNLAB ---
Pain Control Date/time seen: 08/14/23 11:20 Pain control: tolerating well Comments: feeling occasional cramping Pelvic Exam Dilation (cm): 0 (FT) Effacement (%): 75 station: -3 Amniotic membrane status: Intact Comments: Anterior. head well applied to cervix. Contractions Monitor mode: External Contraction pattern: Irregular Status status: Category l Comments: Baseline 135, +accelerations Assessment and Plan Assessment: induction ongoing Plan: continuous present management Comments: Plan another cytotec for cervical ripening. Will start pitocin 4 hours afterwards. Discussed possibility of amniotomy when cervix allows. Pt agreeable. Reviewed recent BPs and labs. UPC pending. Dr. Ring aware. Anticipate vaginal .
[2023-08-14] MEDS: miSOPROStol 25 MCG TABLET 50 MCG PO ×2 (11:49→16:19)
[2023-08-14 12:05] LABS: Creatinine Urine 114.5 mg/dL; Total Protein Urine Random 27 mg/dL; Ur Ttl Prot Creatinine Ratio 0.24 mg/mg (0-0.20)
--- NOTE | 2023-08-14 17:00 | WPDANESEPP ---
Anes - Eval Pre Procedure Procedure: Labor Pain Management Date/Time: 08/14/23 17:00 Surgeon: María Elena Preop Diagnosis: Pain during labor Pre Op Diagnosis: IOL Patient Data Age: 28 Gender: F Height: 1.75 m Weight: 117 kg Last Vital Signs Temp 98 F 08/14/23 15:33 Pulse 104 H 08/14/23 16:15 BP 145/97 H 08/14/23 16:15 O2 Del Method Room Air 08/14/23 05:29 Allergies Allergy/AdvReac Type Severity Reaction Status Date / Time artifical vitamin d Allergy Mild rash Uncoded 01/21/23 10:52 bees Allergy Mild rash Uncoded 01/21/23 10:52 Home Medications Medication Instructions Recorded Confirmed Type albuterol sulfate 90 mcg/actuation 1 puff inhalation Q4H PRN 02/13/22 08/14/23 Rx aerosol inhaler (ProAir HFA) bronchospasm #18 grams levothyroxine 125 mcg tablet 137 mcg PO DAILY 01/21/23 08/14/23 History nifedipine 30 mg tablet,extended 30 mg PO DAILY 01/21/23 08/14/23 History release metoclopramide HCl 5 mg tablet 5 mg PO DAILY 02/05/23 08/14/23 History ondansetron 4 mg disintegrating 4 mg PO Q6H #30 tabs 02/05/23 08/14/23 Rx tablet fluticasone propionate 50 See Rx Instructions .Route 06/09/23 08/14/23 Rx mcg/actuation nasal .COMPLEX #16 grams spray,suspension ondansetron 4 mg disintegrating 4 mg PO Q4H PRN Nausea And 07/07/23 Rx tablet Vomiting #15 tabs escitalopram oxalate 10 mg tablet See Rx Instructions .Route 07/08/23 08/14/23 Rx .COMPLEX #90 tabs Advair Diskus 250 mcg-50 mcg/dose See Rx Instructions .Route 08/04/23 08/14/23 Rx powder for inhalation (fluticasone .COMPLEX #60 ea propion-salmeterol) Laboratory Tests 08/14/23 08/14/23 08/14/23 05:34 10:03 11:51 WBC 16.6 H K/mm3 (4.5-10.0) RBC 4.13 L M/mm3 (4.2-5.4) Hgb 10.5 L g/dL (12.0-15.0) Hct 33.5 L % (37.0-47.0) MCV 81.1 fl (80-100) MCH 25.4 L pg (26-34) MCHC 31.3 L g/dl (32-36) RDW 13.2 % (11.5-14.5) Plt Count 375 k/mm3 (150-375) MPV 10.3 fl (7.4-10.4) Immature Gran % (Auto) 0.7 H % (0-0.5) Neut % (Auto) 75.0 H % (45.5-73.1) Lymph % (Auto) 14.6 L % (18.3-44.2) [place] % (Auto) 5.7 % (2.6-8.5) Eos % (Auto) 3.6 % (0-4.4) Baso % (Auto) 0.4 % (0.2-1.2) Lymph # (Auto) 2.42 K/mm3 (0.9-3.2) Yell # (Auto) 1.0 H K/mm3 (0.1-0.6) Eos # (Auto) 0.6 H K/mm3 (0-0.3) Baso # (Auto) 0.1 K/mm3 (0.0-0.1) Abs Immat Gran (auto) 0.11 H K/mm3 (0.00-0.031) Absolute Neuts (auto) 12.5 H K/mm3 (1.3-6.7) Absolute Nucleated RBC 0.0 K/mm3 (0.0-0.012) Nucleated RBC % 0.0 % (0.0-0.2) Sodium 135 L mmol/L (137-145) Potassium 3.9 mmol/L (3.4-5.0) Chloride 106 mmol/L (98-107) Carbon Dioxide 20 L mmol/L (22-30) Anion Gap 9 mmol/L (8-16) BUN 7 mg/dL (7-17) Creatinine 0.50 L mg/dL (0.7-1.0) Estim Creat Clear Calc Not Reportable Estimated GFR > 60 (59 - ) Glucose 91 mg/dL (65-110) Calcium 9.4 mg/dL (8.4-10.2) Total Bilirubin 0.4 mg/dL (0.2-1.3) AST 17 U/L (14-36) ALT 14 U/L (6-35) Alkaline Phosphatase 97 U/L (38-126) Total Protein 7.0 g/dL (6.3-8.2) Albumin 3.8 g/dL (3.5-5.1) U Random Total Protein 27 mg/dL Urine Creatinine 114.5 mg/dL Protein/Creat Ratio 2 0.24 H mg/mg (0-0.20) RPR Pending Blood Type A Positive Antibody Screen Negative Patient hx anesthesia problems: none Family hx anesthesia problems: none Results Review: All pre-operative results and documents have been reviewed as part of the pre-operative evaluation. [facility] Past Medical History Medical History (Reviewed 08/14/23 @ 17:0
--- NOTE | 2023-08-14 20:50 | PM.OBPNLAB ---
Pain Control Date/time seen: 08/14/23 20:35. Comments: Called by RN. Pelvic Exam Dilation (cm): 0 (FT) Effacement (%): 75 station: -3 Amniotic membrane status: Intact Contractions Monitor mode: External Contraction pattern: Irregular Status status: Category l Assessment and Plan Assessment: induction ongoing Plan: continuous present management Comments: CNM called for update. Recent RN exam- outer os 3cm but unable to penetrate inner os, station high. BPs normal range. No DOUGLAS, visual changes, RUQ pain. FHTs category 1. Irregular contraction pattern. Plan to start pitocin. Anticipate vaginal . Dr. Ring updated.
[2023-08-14] MEDS: OXYTOCIN 30 UNITS/NS 500 ML 30 UNITS/500 ML BAG IV CONT (20:54)
[2023-08-14] MEDS: LACTATED RINGERS 1,000 ML 125 ML IV CONT (20:55)
[2023-08-15] VITALS (287 sets, daily range): BP systolic 85–176; BP diastolic 54–123; PULSE 76–119; TEMP 36.4–36.7; O2SAT 95–100
[2023-08-15] MEDS: LACTATED RINGERS 1,000 ML 125 ML IV CONT ×4 (04:06→21:39)
[2023-08-15] MEDS: LEVOTHYROXINE SODIUM 125 MCG TABLET PO (05:49)
--- NOTE | 2023-08-15 07:39 | PM.OBPNLAB ---
Pain Control Date/time seen: 08/15/23 0730 Pain control: tolerating well Comments: Called overnight at 0510 this am by RN. SVE reported 3.5cm, tracing reassuring, BPs stable. CNM discussed with RN that CNM plans to round after 7am. Call with any concerns. CNM to bedside at aobut 0720. Pelvic Exam Dilation (cm): 1 Effacement (%): 70 station: -3 Amniotic membrane status: Intact Comments: vertex Contractions Monitor mode: External Contraction frequency: 2 (1.5-4) Contraction duration: 60 Contraction pattern: Irregular Contraction phase: Contraction Contraction intensity: Moderate Status status: Category l Assessment and Plan Pitocin rate (mU/min): 8 Comments: CNM at bedside. Discussed plan of care including rupture of membranes and placing intrauterine pressure catheter. Patient agreeable. SVE performed and cervix found to be 1 cm. It is somewhat softer per my previous exam. Discussed findings with patient and her family. Discussed options for continuing Pitocin versus placing Cook catheter with Pitocin. Patient desires to get an epidural for pain control and is agreeable to placement of Cook catheter. Dr. Ring updated.
--- NOTE | 2023-08-15 08:05 | PM.IMHP ---
H&P: HPI History of Present Illness Date/Time: 08/15/23 08:05 Chief Complaint: Induction of labor d/t CHTN Review of Systems Review of Systems: All systems reviewed & are unremarkable except as noted in HPI and below PMFSH Past Medical History Medical History Adult hypothyroidism Allergic asthma Asthma exacerbation, mild Dysphagia Esophageal ring BRANDON (generalized anxiety disorder) Pericarditis Family History Family History Mother Family history of thyroid disease, Onset Age: 48 Ulcerative (chronic) enterocolitis Grandparent Crohn disease Social History Social History Social History: Smoking status: Never smoker Second hand tobacco smoke exposure: No Alcohol intake: never Substance use: never Substance use type: does not use Do You Feel Safe in your Home?: No Lack of Transportation: No Lack of Food: Never True Current Housing: I Have Housing Concerned About Future Housing: No Difficulty Paying Gas/Electric Bills: No Difficulty Paying for Meds: No Currently Unemployed: No Education: High School Diploma/GED Difficulty w/ Childcare or Family Care: No Living arrangements: with family Occupation/Education: occupation Gender identity (if verbalized by the patient): Female Sexual Orientation (if Verbalized by the Patient): Straight or Heterosexual Spiritual care concerns: No Meds Home Medications and Allergies Home Medications Medication Instructions Recorded Confirmed Type albuterol sulfate 90 mcg/actuation 1 puff inhalation Q4H PRN 02/13/22 08/14/23 Rx aerosol inhaler (ProAir HFA) bronchospasm #18 grams levothyroxine 125 mcg tablet 137 mcg PO DAILY 01/21/23 08/14/23 History nifedipine 30 mg tablet,extended 30 mg PO DAILY 01/21/23 08/14/23 History release metoclopramide HCl 5 mg tablet 5 mg PO DAILY 02/05/23 08/14/23 History ondansetron 4 mg disintegrating 4 mg PO Q6H #30 tabs 02/05/23 08/14/23 Rx tablet fluticasone propionate 50 See Rx Instructions .Route 06/09/23 08/14/23 Rx mcg/actuation nasal .COMPLEX #16 grams spray,suspension ondansetron 4 mg disintegrating 4 mg PO Q4H PRN Nausea And 07/07/23 Rx tablet Vomiting #15 tabs escitalopram oxalate 10 mg tablet See Rx Instructions .Route 07/08/23 08/14/23 Rx .COMPLEX #90 tabs Advair Diskus 250 mcg-50 mcg/dose See Rx Instructions .Route 08/04/23 08/14/23 Rx powder for inhalation (fluticasone .COMPLEX #60 ea propion-salmeterol) Allergies Allergy/AdvReac Type Severity Reaction Status Date / Time artifical vitamin d Allergy Mild rash Uncoded 01/21/23 10:52 bees Allergy Mild rash Uncoded 01/21/23 10:52 Vital Signs Vital Signs - 24 hr 08/14/23 08:30 08/14/23 09:00 08/14/23 09:30 Temperature Pulse Rate 91 104 H 104 H Blood Pressure 129/80 144/103 H 156/103 H 08/14/23 09:55 08/14/23 10:00 08/14/23 10:11 Temperature Pulse Rate 108 H 101 H 104 H Blood Pressure 163/97 H 169/104 H 165/98 H 08/14/23 10:21 08/14/23 10:30 08/14/23 10:40 Temperature Pulse Rate 109 H 110 H 105 H Blood Pressure 149/95 H 151/97 H 154/100 H 08/14/23 10:50 08/14/23 11:00 08/14/23 11:10 Temperature Pulse Rate 99 106 H 103 H Blood Pressure 154/94 H 170/105 H 169/108 H 08/14/23 11:13 08/14/23 11:21 08/14/23 11:31 Temperature Pulse Rate 106 H 114 H 106 H Blood Pressure 175/96 H 161/94 H 151/84 H 08/14/23 11:52 08/14/23 12:01 08/14/23 12:46 Temperature Pulse Rate 107 H 111 H 103 H Blood Pressure 137/84 122/72 140/80 08/14/23 11:30 08/14/23 15:33 08/14/23 15:56 Temperature 97.5 F L 98 F Pulse Rate 95 Blood Pressure 140/83 08/14/23 16:00 08/14/23 16:15 01/20/24 20:15 Temperature Pulse Rate 103 H 104 H 104 H Blood Pressure 146/99 H 145/97 H 147/92
--- NOTE | 2023-08-15 09:38 | PM.OBPNLAB ---
Pain Control Date/time seen: 08/15/23 09:35 Pain control: epidural Pelvic Exam Dilation (cm): 1 Effacement (%): 70 station: -3 Amniotic membrane status: Intact Comments: soft, posterior. head applied. Contractions Monitor mode: External Contraction pattern: Irregular Contraction phase: Contraction Contraction intensity: Moderate Status status: Category l Assessment and Plan Assessment: induction ongoing Comments: After discussion of plan of care with Roseanna and her partner, cook catheter CNM attempted placement of cook catheter. Unable to advance into os due to posterior position of cervix. Able to place fernandez balloon with stylette easily. Inflated with 60ml sterile saline. Tubing secured to pt's thigh. Plan to continue pitocin. RN to apply tension to balloon at least hourly. Plan to rupture membranes if able once balloon is expelled. BPs stable. Denies DOUGLAS, visual changes, RUQ pain. Dr. Ring updated.
--- NOTE | 2023-08-15 16:10 | PM.OBPNLAB ---
Pain Control Date/time seen: 08/15/23 16:05 Pain control: tolerating well and epidural Pelvic Exam Dilation (cm): 3 Effacement (%): 70 station: -3 Amniotic membrane status: Intact Comments: head well applied to cervix. Contractions Monitor mode: External Contraction frequency: 2 (1.5-4) Contraction pattern: Irregular Contraction phase: Contraction Contraction intensity: Moderate Status status: Category l Assessment and Plan Pitocin rate (mU/min): 20 Assessment: induction ongoing Plan: continuous present management Comments: CNM to bedside. Discussed plan of care an option for amniotomy and placement of IUPC. Tension applied to fernandez balloon catheter and it was easily expelled. Discussed risks, benefits, and expectations of breaking water and IUPC placement. Patient is agreeable. Amniotomy performed and there was a small return of clear amniotic fluid. IUPC inserted easily and returned with clear fluid. Patient tolerated procedure well. Pitocin rate decreased to 10ml/hr. IUPC resting tone higher than desired. Plan to re-zero, flush, adjust. Uterine tone soft. Dr. Ring updated.
[2023-08-15] MEDS: CALCIUM CARBONATE (TUMS) 500 MG (200 MG ELEMENTAL) PO (16:38)
[2023-08-15] MEDS: ONDANSETRON INJ 4 MG/2 ML VIAL IV PUSH (19:20)
[2023-08-16] VITALS (246 sets, daily range): BP systolic 112–158; BP diastolic 59–105; PULSE 72–127; RESP 9–17; TEMP 36.2–37.1; O2SAT 94–100
--- NOTE | 2023-08-16 02:18 | PM.OBPNLAB ---
Pain Control Date/time seen: 08/16/23 02:15 Pain control: tolerating well Comments: Feeling some rectal pressure. Pelvic Exam Dilation (cm): 5 Effacement (%): 70 station: -3 Amniotic membrane status: Ruptured Contractions Monitor mode: Internal Contraction pattern: Regular Contraction phase: Contraction Contraction intensity: Moderate Status status: Category l Assessment and Plan Pitocin rate (mU/min): 6 Assessment: induction ongoing Comments: CNM to bedside. SVE unchanged. Suspect head asynclitic. Recommend specific position changes to facilitate optimal positioning. Discussed plan of care.
[2023-08-16] MEDS: CALCIUM CARBONATE (TUMS) 500 MG (200 MG ELEMENTAL) PO (04:53)
[2023-08-16] MEDS: LEVOTHYROXINE SODIUM 125 MCG TABLET PO (05:33)
[2023-08-16] MEDS: LACTATED RINGERS 1,000 ML 125 ML IV CONT ×2 (05:34→14:07)
--- NOTE | 2023-08-16 07:13 | PM.OBPNLAB ---
Pain Control Date/time seen: 08/16/23 07:05 Pain control: tolerating well and epidural Pelvic Exam Dilation (cm): 5 Effacement (%): 70 station: -3 Amniotic membrane status: Ruptured Comments: unchanged Contractions Monitor mode: Internal Contraction frequency: 5 (5-6) Contraction duration: 80 (80-120) Contraction pattern: Irregular Contraction phase: Contraction Status status: Category l Assessment and Plan Assessment: induction ongoing Plan: continuous present management Comments: SVE reveals soft part in posterior cervix, anterior part hard. Limited bedside US reveals vertex fetus. Plan to increase pitocin as needed to achieve adequate contraction pattern. Dr. Ring notified.
[2023-08-16] MEDS: AMPICILLIN 2 GM/NS 100 ML 2 GM/100 ML BAG IVPB (10:52)
--- NOTE | 2023-08-16 12:05 | PM.OBPNLAB ---
Pain Control Date/time seen: 08/16/23 1145 Pain control: epidural Pelvic Exam Dilation (cm): 5 Effacement (%): 70 station: -3 Amniotic membrane status: Ruptured Contractions Monitor mode: Internal Contraction frequency: 2 (2-4) Contraction duration: 80 (80-180) Contraction pattern: Irregular Contraction phase: Contraction Status status: Category l Assessment and Plan Pitocin rate (mU/min): 12 Assessment: induction ongoing Plan: continuous present management Comments: SVE remains unchanged. Recommend replacement of IUPC. Cable replaced. head remains asynclitic. New IUPC placed. Discussed plan of care with pt and family.. Recommend Walchers position, pt agreeable. Pt assisted to Walchers position for 3 ctx and then onto L lateral. Ctx intensity improved. Plan to up titrate pitocin to achieve adequate ctx pattern. Dr. Ring updated.
--- NOTE | 2023-08-16 13:43 | PM.OBPNLAB ---
Pain Control Date/time seen: 08/16/23 13:35 Pain control: epidural Pelvic Exam Dilation (cm): 5 Effacement (%): 80 station: -3 Amniotic membrane status: Ruptured Comments: Unchanged Contractions Monitor mode: Internal Contraction frequency: 2 (2-3) Contraction duration: 60 (60-90) Contraction pattern: Regular Contraction phase: Contraction Status status: Category l Assessment and Plan Pitocin rate (mU/min): 18 Assessment: induction ongoing Comments: SVE unchanged. Discussed plan of care with pt. Discussed length of ROM, tracing, SVE, and labor status. Discussed option of attempting to proceed with IOL or opt for . Ctx more consistent the last 2 hours but resting tone increasing. Discussed findings and plan with Dr. Ring. Pt discussed options with family and her S.O. (for 25 minutes). Pt decided to proceed with . Dr. Ring notified. Will discontinue oxytocin.
[2023-08-16 13:53] LABS: Rapid Plasma Reagin Non-Reactive (NonReactive)
[2023-08-16] MEDS: AZITHROMYCIN 500 MG/NS 250 ML 500 MG/250 ML BAG 250 MG IVPB (14:07)
--- NOTE | 2023-08-16 15:09 | W.PM.OBCSD ---
OB - Delivery Note Procedure Delivery date: 08/16/23 Pre-op diagnosis: Arrest of Dilation and Chronic Hypertension Post-op Diagnosis: Same Induction method: AROM, Per Misoprostol Protocol, Per Pitocin Protocol and Other (Cook catheter) Delivery monitor: External FHT and Internal Uterine Prior to decision for section, ACOG/SMFM labor guidelines were considered and discussed with the patient and staff. Decision made to proceed with the section.: Yes Procedure Performed: Primary Primary branch: low cervical, transverse Surgeon: Joseline Ring MD Anesthesia type: Spinal ( failed) Description of Procedure/Findings: The patient is taken to the operating room and placed under epidural anesthesia in the dorsal supine position with a leftward tilt. The patient was prepped and draped in the usual sterile fashion however when testing the patient felt sharp almost to the level of the incision. The patient was undraped and sat up. The epidural was removed. A spinal anesthetic was placed. The patient was then again placed in the dorsal supine position with a leftward tilt and redraped and prepped. Anesthesia was deemed adequate and a Pfannenstiel skin incision was made with a scalpel. The incision was carried down to the underlying layer of fascia which was nicked in the midline. The fascial incision was extended laterally using Peralta scissors. Ochsner was used to tent the fascia which was then dissected off using blunt and sharp dissection. The rectus muscles are in the midline. The peritoneum was tented and entered with Metzenbaum scissors. The peritoneal incision was extended with blunt traction. The bladder blade is placed. The vesicouterine peritoneum was tented and entered with Metzenbaum scissors. The incision was extended laterally. The bladder flap was created digitally. The bladder blade was replaced. The lower uterine segment was incised in a transverse fashion with the scalpel. The 's head was brought up into the incision and delivered while the bilingual legal assistant applied fundal pressure. The nuchal cord x1 was very tight therefore delivered through. The shoulders and body are delivered. A brief delayed cord clamping is performed however the was not crying and the cord was clamped and cut. The infant was handed to the waiting nursery nurse. Good tone and pink color were noted. The placenta is removed with manual traction after cord gases and cord blood were taken. The uterus was cleared of all clots and debris and exteriorized. The uterine incision was closed using 0 Monocryl in a running locked fashion and the same suture was used to imbricate. Good hemostasis is noted. The cul-de-sac is irrigated and the uterus returned to the abdomen the gutters were irrigated. The incision was again inspected noted to be hemostatic. The fascia was closed using 0 Vicryl in a running fashion. Subcutaneous tissues were irrigated made hemostatic using Bovie cautery. Skin is closed using 4-0 Vicryl in a subcuticular fashion. Dermaflex was placed over the incision. Patient received Ancef and Zithromax prior to incision. Sponge, needle, and instrument counts are correct per the OR staff. The patient is taken to recovery in stable condition. Specimen: Yes ( Placenta) Estimated Blood Loss: 265 Drains: Yes ( James catheter) Packing: No Pathology: Yes ( placenta) Complications: No immediate complications Condition: Stable Disposition: Floor Guys Baby Date of : 08/16/23 Weeks of gestation at delivery: 39 (39 2/7) Infant gender: Female Weight (pounds): 7 Weight (ounces): 6 presentation: vertex position: Right Occiput Anterior (asynclitic) Placenta delivery description: Spontaneous Cord Vessel Description: 3 Vessels, Nuchal Cord ( tight) and Delayed Cord Clamping ( brief) Narrative: Apgars not calculated at the time of this dictation
--- NOTE | 2023-08-16 15:17 | PM.OBDSVD ---
DS: Admitting Diagnosis Discharge Date 08/20/23 Admitting Diagnosis intrauterine at 39 weeks chronic hypertension DS: Discharge Diagnosis Discharge Diagnosis (1) Delivery by section using transverse incision of lower segment of uterus: Code(s): O82 - Encounter for delivery without indication Status: Acute Assessment and Plan: secondary to failure to progress OB - DS: Summary OB Procedures : NST and Ultrasound OB Procedures Intrapartum: low cervical, transverse OB Procedures: : None Peripartum Data Infant Delivery Method: Section Procedures: Procedures Operation Date: 08/16/23 14:30 <No data on this case meets the specified criteria> complications: none Status at Discharge Functional status at discharge: independent ambulation Overall status at discharge: patient is progressing back to baseline Time Spent with Patient Time attestation: Total time spent providing and/or coordinating discharge services: DS: Data Data Completed and Pending Labs on day of discharge: Labs from last 24 hours 08/14/23 05:34 RPR Non-reactive Discharge Plan Discharge Attending physician on discharge: Joseline Ring Consulting providers: Charmaine Cook; Matt Antony; Ac Lepe; Melodie Beyer Discharging Clinician: Charmaine Cook Anticipated Discharge Date/Time: 08/19/23 15:18 Patient Disposition: Home, Self-Care Activity: may shower, may drive after 2 weeks and pelvic rest Diet: regular Wound Care Instructions: incision open to air Discharge Instructions: Education: Mom and Baby Guide Given to: Mother Follow-Up: Call your delivering provider's office for an appointment to be seen in: 1 Week for incision check and then another for 4 weeks for a visit. Mom and baby should come to the [facility] for the follow-up appointment. Appointment Date/Time: August 21, 2023 at 9:00 am What to expect at your follow-up visit: Blood Pressure Check Physical Assessment Call [phone] if you are unable to keep your appointment time. BREAST CARE: * Wear a snug supportive bra. * For engorgement discomfort: Breast Feeding: * Apply warm moist washcloths * Express milk as needed to relieve engorgement * Wear loose clothing * For sore nipples: * Identify correct latch-on * Apply warm moist washcloths before and after nursing * Air dry nipples after nursing * May apply Lansinoh cream to nipples ABDOMINAL INCISION: (if applicable) * Do NOT use lotions for powders on your incision * When showering, allow soap and water to run over the incision, but do not wash incision * Gently pat the incision dry using a clean dry towel. EPISIOTOMY/PERINEAL CARE: * Until bleeding stops, use your clarke bottle after urinating * Change your pad frequently throughout the day * You may take sitz baths several times a day (fill your bathtub with warm water and soak for 20 minutes.) Do NOT bathe in the water * No tub baths until seen by your physician - You may shower ACTIVITY: * Rest as much as possible. * Do not exercise or lift anything heavier than your baby (such as laundry or other children.) * Avoid stairs or driving as much as possible. * Do not put anything into the vagina. No douching, tampons, or sexual activity until seen by physician. NOTIFY PHYSICIAN IF YOU HAVE ANY QUESTIONS OR IF ANY OF THE FOLLOWING SYMPTOMS OCCUR: * If your incision becomes red, swollen, or more painful than what you have experienced in the hospital. * If your vaginal bleeding becomes foul smelling. * If your vaginal bleeding becomes more heavy than a period or if your bleeding changes from the brownish-red color that it is now to bright red. However, you may pass an occasional walnut-sized clot onc
--- NOTE | 2023-08-16 15:21 | WPDANESEPPF ---
Anes - Initial Pre Proc Eval Procedure: Operation Date: 08/16/23 14:30 Proposed Procedures p Section - Joseline Ring MD Date/Time: 08/16/23 15:21 Surgeon: Charmaine Cook CNM Pre Op Diagnosis: IOL Patient Data Age: 28 Gender: F Height: 1.75 m Weight: 117 kg Last Vital Signs Temp 36.7 C 08/16/23 12:59 Pulse 97 08/16/23 15:17 BP 114/59 L 08/16/23 15:17 Pulse Ox 100 08/16/23 15:18 O2 Del Method Room Air 08/14/23 05:29 Allergies Allergy/AdvReac Type Severity Reaction Status Date / Time artifical vitamin d Allergy Mild rash Uncoded 01/21/23 10:52 bees Allergy Mild rash Uncoded 01/21/23 10:52 Home Medications Medication Instructions Recorded Confirmed Type albuterol sulfate 90 mcg/actuation 1 puff inhalation Q4H PRN 02/13/22 08/14/23 Rx aerosol inhaler (ProAir HFA) bronchospasm #18 grams levothyroxine 125 mcg tablet 137 mcg PO DAILY 01/21/23 08/14/23 History nifedipine 30 mg tablet,extended 30 mg PO DAILY 01/21/23 08/14/23 History release metoclopramide HCl 5 mg tablet 5 mg PO DAILY 02/05/23 08/14/23 History ondansetron 4 mg disintegrating 4 mg PO Q6H #30 tabs 02/05/23 08/14/23 Rx tablet fluticasone propionate 50 See Rx Instructions .Route 06/09/23 08/14/23 Rx mcg/actuation nasal .COMPLEX #16 grams spray,suspension ondansetron 4 mg disintegrating 4 mg PO Q4H PRN Nausea And 07/07/23 Rx tablet Vomiting #15 tabs escitalopram oxalate 10 mg tablet See Rx Instructions .Route 07/08/23 08/14/23 Rx .COMPLEX #90 tabs Advair Diskus 250 mcg-50 mcg/dose See Rx Instructions .Route 08/04/23 08/14/23 Rx powder for inhalation (fluticasone .COMPLEX #60 ea propion-salmeterol) Laboratory Tests 08/14/23 05:34 RPR Non-reactive (NonReactive) Patient hx anesthesia problems: none Family hx anesthesia problems: none Results Review: All pre-operative results and documents have been reviewed as part of the pre-operative evaluation. [facility] Past Medical History Medical History Adult hypothyroidism Allergic asthma Asthma exacerbation, mild Dysphagia Esophageal ring BRANDON (generalized anxiety disorder) Pericarditis Family History Family History Mother Family history of thyroid disease, Onset Age: 48 Ulcerative (chronic) enterocolitis Grandparent Crohn disease Social History Social History Social History: Smoking status: Never smoker Second hand tobacco smoke exposure: No Alcohol intake: never Substance use: never Substance use type: does not use Do You Feel Safe in your Home?: No Lack of Transportation: No Lack of Food: Never True Current Housing: I Have Housing Concerned About Future Housing: No Difficulty Paying Gas/Electric Bills: No Difficulty Paying for Meds: No Currently Unemployed: No Education: High School Diploma/GED Difficulty w/ Childcare or Family Care: No Living arrangements: with family Occupation/Education: occupation Gender identity (if verbalized by the patient): Female Sexual Orientation (if Verbalized by the Patient): Straight or Heterosexual Spiritual care concerns: No Anes - Eval Final PreProcedure Day of Procedure 08/16/23 15:21 Patient weight: obese Heart: regular rate and rhythm Lungs: clear to auscultation and normal air movement Airway: Mallampati scale class II Neurological: alert and oriented Last oral intake: >/= 8 hours ASA classification: III Emergent: no Anesthetic plan: proceed Anesthesia type and monitoring: regional epidural and standard monitoring Results Review: All pre-operative results and documents have been reviewed as part of the pre-operative evaluation. Informed Consent: The patient's anesthetic plan and its attendant risks and benefits w
[2023-08-16] MEDS: OXYTOCIN 30 UNITS/NS 500 ML 30 UNITS/500 ML BAG 125 UNITS IV CONT (16:18)
[2023-08-16] MEDS: MORPHINE SULFATE INJ (*CRX) 10 MG/ML AMP 2 MG IV PUSH (16:26)
--- NOTE | 2023-08-16 17:20 | PC.NURSE ---
Pt to the nursery to visit with baby.
--- NOTE | 2023-08-16 17:48 | PC.NURSE ---
Patient transferred to post room #285 via stretcher. Support person present. Oriented to unit, room, information board, rooming in, admission packet and security measures. Patient verbalizes understanding.
[2023-08-16] MEDS: KETOROLAC 30 MG/ML VIAL (*BKC) IV PUSH (18:55)
[2023-08-16] MEDS: DEXTROSE 5%/0.45% SOD CHL 1,000 ML 125 ML IV CONT (20:26)
[2023-08-17 04:20] VITALS: BP 121/73; PULSE 95; RESP 16; TEMP 37.3; O2SAT 99
[2023-08-17] MEDS: ACETAMINOPHEN 325 MG TABLET 650 MG PO (05:20)
[2023-08-17] MEDS: IBUPROFEN 600 MG TABLET PO ×2 (05:20→12:24)
[2023-08-17 06:06] LABS: Basophils Absolute Auto 0.1 K/mm3 (0.0-0.1); Basophils Percent Auto 0.6 % (0.2-1.2); Eosinophils Absolute Auto 0.2 K/mm3 (0-0.3); Eosinophils Percent Auto 1.2 % (0-4.4); Hematocrit 25.2 % (37.0-47.0); Hemoglobin 7.7 g/dL (12.0-15.0); Immature Granulocyte Absolute 0.17 K/mm3 (0.00-0.031); Immature Granulocyte Percent A 1.2 % (0-0.5); Lymphocytes Percent Auto 15.3 % (18.3-44.2); Mean Corpuscular HGB Conc 30.6 g/dl (32-36); Mean Corpuscular Hemoglobin 25.3 pg (26-34); Mean Corpuscular Volume 82.9 fl (80-100); Mean Platelet Volume 10.1 fl (7.4-10.4); Monocytes Absolute Auto 1.1 K/mm3 (0.1-0.6); Monocytes Percent Auto 7.7 % (2.6-8.5); Neutrophils Absolute Auto 10.6 K/mm3 (1.3-6.7); Platelet Count Result 264 k/mm3 (150-375); Red Blood Count 3.04 M/mm3 (4.2-5.4); Red Cell Distribution Width 13.6 % (11.5-14.5); White Blood Count 14.3 K/mm3 (4.5-10.0)
--- NOTE | 2023-08-17 07:55 | P.PNOB_ITS ---
OB - PN: Subj Subjective Date/time seen: 08/17/23 07:55 Patient comments: no complaints and pain well controlled OB - PN: Obj Data Labs 08/17/23 06:00 08/14/23 10:03 Labs: Laboratory Results - last 24 hr 08/14/23 08/17/23 05:34 06:00 WBC 14.3 H RBC 3.04 L Hgb 7.7 L Hct 25.2 L MCV 82.9 MCH 25.3 L MCHC 30.6 L RDW 13.6 Plt Count 264 MPV 10.1 Immature Gran % (Auto) 1.2 H Neut % (Auto) 74.0 H Lymph % (Auto) 15.3 L Alfalfa % (Auto) 7.7 Eos % (Auto) 1.2 Baso % (Auto) 0.6 Lymph # (Auto) 2.20 Alfalfa # (Auto) 1.1 H Eos # (Auto) 0.2 Baso # (Auto) 0.1 Abs Immat Gran (auto) 0.17 H Absolute Neuts (auto) 10.6 H Absolute Nucleated RBC 0.0 Nucleated RBC % 0.0 RPR Non-reactive OB - PN A/P Assessment and Plan (1) Chronic hypertension affecting : Code(s): O10.919 - Unspecified pre-existing hypertension complicating , unspecified trimester Status: Acute Assessment and Plan: BP stable Plan day: 1 Plan: routine care Comments: anemia without symptoms-continue iron Time Spent With Patient Time: Total time spent is greater than 50% in coordination of care (as documented) at patient's floor/unit and/or counseling patient: Exam 2 Narrative: inc c/d/i : Bimanual exam- vagina & uterus: other (Uterus firm, nt @U)
[2023-08-17 08:00] VITALS: BP 123/75; PULSE 88; RESP 18; TEMP 36.6; O2SAT 99
--- NOTE | 2023-08-17 08:30 | WPDANLDPN2 ---
Anes-Prog Note L&D Date/Time: 08/17/23 08:30 Comfortable throughout: labor and section Neuraxial method: spinal (epidural was placed, but still felt pain when dosed for c/s. so a spinal was performed.) Epidural/Spinal procedure site: tender Neuro status: Neuro function grossly intact. Cardiovascular status: normal Respiratory status: normal Airway patency: baseline Mental status: baseline Post-Op hydration status: normal Vital Signs: Last Vital Signs Temp 37.3 C 08/17/23 04:20 Pulse 95 08/17/23 04:20 Resp 16 08/17/23 04:20 BP 121/73 08/17/23 04:20 Pulse Ox 99 08/17/23 04:20 O2 Del Method Room Air 08/17/23 04:20 Pain score (VAS): 2/10 I/O: Intake & Output 08/16/23 08/17/23 08/17/23 23:59 07:59 15:59 Intake Total 60 Output Total 500 260 Balance -440 -260 Post-procedural complaints: none Patient feedback: Patient satisfied with anesthetic care.
--- NOTE | 2023-08-17 08:31 | WPDANLDNPN2 ---
Anes-Prog Note L&D-Neuraxial Date/Time: 08/17/23 08:31 Neuraxial medications: intrathecal PF morphine Opiod-related complaints: none Patient feedback: Patient satisfied with post-operative pain management.
[2023-08-17] MEDS: HYDROcodone/acetaminophen (*CRX) 5-325 MG TABLET 1 TAB PO (08:48)
[2023-08-17] MEDS: MULTIVIT/MIN/PREN/FOL AC/IRON TABLET 1 TAB PO (11:22)
[2023-08-17] MEDS: POLYSACCHARIDE IRON COMPLEX 150 MG CAPSULE PO ×2 (11:22→20:05)
[2023-08-17] MEDS: DOCUSATE SODIUM 100 MG CAPSULE PO ×2 (11:22→20:05)
--- NOTE | 2023-08-17 12:19 | PC.NURSE ---
[id number] Introductions were made, then consulted with patient to assess needs related to . Mother led the conversation with her?plans to feed?her infant, the?experience so far and is cradle holding infant with a pacifier. had separation after , level 2 care, and mother has had a labor that was completed by a primary section. Encouraged understanding of the benefits of skin to skin (demonstrating unwrapping and placing upright on her chest), stimulating with massage touch, changing positions to encourage wakefulness, how to watch for early feeding cues, responsive feeding, feeding on demand (aiming for 8-12 times in 24 hours, about every 2-3 hours), milk production, building/maintaining a milk supply, duration of feeding, signs of adequate intake/output and how to record on the feeding sheet. Reviewed how to wake , what feeding cues look like and how to respond to the feeding cues. Mother works well with her with encouragement and education. When feeding cues were visualized, then we reviewed positioning and ear, shoulder, hip alignment, supporting the breast to facilitate a deep latch, asymmetrical latch (off-center), leading with the chin with a big, open, wide gape and body close to mother. Infant began to cry when brought to the breast. Mother was placed in laid-back positioning and given time to use instinct to explore mothers chest/breast along with the new environment that isn't very familiar with. began nippling and had some attempts to latch though unsuccessful at this time <20hours old on D10. Name written on the communication board to call for assistance. 1055 - Primary RN is present getting patient up to chair. Instruction was given to call when mother is settled and is back [id number]. [id number] - LC was requested to assist couplet with . is [id number] and once feeding cues were visualized infant was brought to the left breast with mothers choice of cradle hold at first. A suggestion was made to attempt with cross cradle and mother consented. We practiced the skill of hand expression and finger fed the drops to the , then baby attempted to latch to the left breast using cross cradle, however; did not suck. Infant placed upright [id number] to reset, then after a few attempts, some hand expressed drops finger fed to , infant latched optimally to the right breast in football position. was unable to maintain latch beyond a few sucks for a few attempts which is progress from earlier today. did suck 3 times and swallow, then stopped. Infant is <24 hours old at this time. Reviewed comfort measures of healing with a warm, wet washcloth to rinse breast, then leave open to air-dry, good handwashing when or touching the breast/nipples to prevent infection. Mother is going to pump her breast for stimulation. Reviewed milk production and we plan to feed infant whatever mother is able to express. Mother voiced understanding of skin to skin, stimulating with massage touch, responsive feedings, hand expressed colostrum, talking to infant to encourage if it has been 2 -2.5 hours since the start of the last , to call if does not latch, difficulty waking to breastfeed, or if there is discomfort with . Resources used for education were facilitated with the visual educational handouts, tool, feeding sheet, mom and baby guide. Inpatient/outpatient resources provided with feeding sheet, name written on the communication board, and the mom/baby guide. Mother voiced understanding of information, demonstrated learning and will call if there is a request for assistance. Reported to the Primary RN.
[2023-08-17] MEDS: HYDROcodone/acetaminophen (*CRX) 10-325 MG TABLET 1 TAB PO ×3 (12:22→20:05)
[2023-08-17 12:29] VITALS: BP 120/65; PULSE 100; RESP 18; TEMP 36.6; O2SAT 100
--- NOTE | 2023-08-17 15:51 | PC.NURSE ---
[id number] Purposefully rounded to assess needs. Mother desires to attempt to breastfeed her infant on her own and wants RN LC to check back in about 20 minutes. [id number] -[id number] Consulted with patient to assess needs related to . Nipple care reviewed with optimal latch, good positioning and using clean hands when touching her breast. We worked with for 30-40 min going to breast, upright [id number], back to breast and so on. latched to the left breast using cross cradle positioning and effectively sucked for <60 sec, then let go of the breast. was able to do this a few times, but would not maintain for longer than 1 minute. We attempted to latch infant with a nipple shield that had been provided to mother last night and infant would not latch appropriately. Discussed with mother risks, benefits of multiple feeding options as mother is asking for solutions to feeding her . We reviewed paced bottle feeding with breast milk, pumping breast for breast milk (so for mother has drops of EBM that have been finger fed to the ), and paced bottle feeding with formula. remains on IVF's D10 and mother is concerned about the IV, discomfort and wants to learn how to pace bottle feed to get her infant off of the IV. Resources used to facilitate learning were used from the visual handouts and demonstration. Father demonstrated paced bottle feeding and mother is pumping to protect her milk supply. Parents voiced understanding of the education shared and to call for assistance with infant or maternal care. Reported to the Primary RN.
[2023-08-17 16:10] VITALS: BP 125/78
[2023-08-17 19:00] VITALS: BP 140/81; PULSE 90; RESP 18; TEMP 36.4; O2SAT 99
[2023-08-18 00:01] VITALS: BP 139/96; PULSE 93
[2023-08-18 04:45] VITALS: BP 129/75
[2023-08-18] MEDS: HYDROcodone/acetaminophen (*CRX) 10-325 MG TABLET 1 TAB PO ×3 (06:12→10:29)
[2023-08-18] MEDS: IBUPROFEN 600 MG TABLET PO ×4 (06:13→22:38)
--- NOTE | 2023-08-18 07:30 | PM.OBPNVD ---
OB - PN: Subj Subjective Date/time seen: 08/18/23 07:20 Interval history: Doing well. Urinating without difficulty. Denies passing any more large clots. Denies dizziness with ambulating. Tolerating po food and fluids. Bonding with . receiving IV fluids. Patient comments: incisional pain baby status: other (attempting to breastfeed/latch) [place] feeding status: breast and bottle feeding OB - PN: Obj Data Labs 08/17/23 06:00 08/14/23 10:03 OB - PN A/P Plan day: 2 Plan: routine care Time Spent With Patient Time: Total time spent is greater than 50% in coordination of care (as documented) at patient's floor/unit and/or counseling patient: Review of Systems Review of Systems: All systems reviewed & are unremarkable except as noted in HPI and below Exam Const: General: cooperative, no acute distress and awake Orientation/consciousness: patient oriented x3 Limitations: no limitations Resp: Effort & Inspection: normal respiratory effort and able to speak in complete sentences Auscultation: clear to auscultation bilaterally Cardio: Rate: regular rate Peripheral pulses: Peripheral pulses 2+ throughout GI: Inspection: normal to inspection Auscultation: normal bowel sounds : General: Yes bladder normal to palpation Speculum Exam - Vagina: vaginal bleeding Bimanual exam- vagina & uterus: bladder normal to palpation OB/external & speculum: vaginal bleeding Other: Fundus firm Skin: General skin exam: normal color Other: Incision C/D/I. Some skin adherent (overlapping incision) at pannus. No bleeding. Neuro: General: patient oriented x3 Cognition (Neuro): normal cognition Speech: normal speech Extrem: General: normal to inspection Psych: Appearance: grossly normal Mental Status: mental status grossly normal Speech and movement: Normal speech and movement present Affect: normal affect Attitude: cooperative Thought process: Normal thought process present
[2023-08-18 08:00] VITALS: BP 130/91; PULSE 85; RESP 16; TEMP 36.9; O2SAT 99
[2023-08-18] MEDS: POLYSACCHARIDE IRON COMPLEX 150 MG CAPSULE PO ×2 (10:29→17:43)
[2023-08-18] MEDS: DOCUSATE SODIUM 100 MG CAPSULE PO ×2 (10:29→17:43)
[2023-08-18] MEDS: MULTIVIT/MIN/PREN/FOL AC/IRON TABLET 1 TAB PO (10:29)
--- NOTE | 2023-08-18 12:01 | PC.NURSE ---
Report received this morning that mother is sleeping, has bottle fed all night, there is uncertainty if mother has pumped last night. Education has been reinforced by two Primary RNs to protect her milk supply with pumping. Primary RN will check to see if patient would like to see today.
[2023-08-18 12:05] VITALS: BP 143/88; PULSE 90; RESP 16; TEMP 36.7; O2SAT 99
--- NOTE | 2023-08-18 13:03 | PC.NURSE ---
1220 - Pt declined help today.
[2023-08-18] MEDS: HYDROcodone/acetaminophen (*CRX) 5-325 MG TABLET 1 TAB PO ×3 (14:31→22:38)
[2023-08-18 15:00] VITALS: BP 136/80
[2023-08-18 21:14] VITALS: BP 147/95; PULSE 97; RESP 18; TEMP 36.7; O2SAT 97
[2023-08-19 01:05] VITALS: BP 114/61
[2023-08-19 04:33] VITALS: BP 138/92; PULSE 85
[2023-08-19] MEDS: IBUPROFEN 600 MG TABLET PO ×2 (07:42→13:48)
[2023-08-19] MEDS: HYDROcodone/acetaminophen (*CRX) 5-325 MG TABLET 1 TAB PO ×4 (07:42→17:11)
--- NOTE | 2023-08-19 07:44 | PM.OBPNVD ---
OB - PN: Subj Subjective Date/time seen: 08/19/23 07:44 Interval history: Patient comments: no complaints and pain well controlled baby status: doing well OB - PN: Obj Data Labs 08/17/23 06:00 08/14/23 10:03 OB - PN A/P Plan day: 2 Plan: routine care Comments: possible dc home Time Spent With Patient Time: Total time spent is greater than 50% in coordination of care (as documented) at patient's floor/unit and/or counseling patient: Exam Narrative: inc c/d/i : Bimanual exam- vagina & uterus: other (Uterus firm, nt @U)
[2023-08-19 08:00] VITALS: BP 136/94; PULSE 112; RESP 18; TEMP 37; O2SAT 99
[2023-08-19] MEDS: MULTIVIT/MIN/PREN/FOL AC/IRON TABLET 1 TAB PO (10:44)
[2023-08-19] MEDS: POLYSACCHARIDE IRON COMPLEX 150 MG CAPSULE PO ×2 (10:44→17:11)
[2023-08-19] MEDS: DOCUSATE SODIUM 100 MG CAPSULE PO ×2 (10:44→17:11)
[2023-08-19 12:30] VITALS: BP 129/90; PULSE 87; RESP 18; TEMP 36.9; O2SAT 99
--- NOTE | 2023-08-19 14:01 | PC.NURSE ---
[id number] Mother requested assistance with the pump. Reviewed the fitting of the membrane to the valve and the pump began to work correctly. We reviewed how her personal pump is the same, yet different. Instructions given on cleaning, care, usage, that there should be no pain, pumping schedule for milk production, collection, and storage of human milk. Patient was assessed for correct placement, flange size, to pump for comfort and nipple stretching/stimulation for adequate milk production every 3 hours (8 times in 24 hours) 1-2 times at night. Mother chooses not to put infant to the breast. Mother voiced understanding of the education shared along with mom/baby guide.
[2023-08-19 15:50] VITALS: BP 137/93; PULSE 81
[2023-08-19 20:18] VITALS: BP 146/94; PULSE 98; RESP 18; TEMP 36.6; O2SAT 99
[2023-08-20 01:20] VITALS: BP 143/87
[2023-08-20 04:30] VITALS: BP 142/95; PULSE 83
[2023-08-20 08:00] VITALS: BP 148/92; PULSE 85; RESP 16; TEMP 36.9; O2SAT 100
--- NOTE | 2023-08-20 08:02 | P.PNOB_ITS ---
OB - PN: Subj Subjective Date/time seen: 08/20/23 0745 Interval history: Doing well. Urinating without difficulty. Denies passing any large clots. Denies dizziness with ambulating. Tolerating po food and fluids. Bonding with infant. Reports her milk is coming in -breast fullness. Patient comments: pain well controlled baby status: doing well [place] feeding status: breast and bottle feeding OB - PN: Obj Data Labs 08/17/23 06:00 08/14/23 10:03 OB - PN A/P Plan day: 4 Plan: discharge home Time Spent With Patient Time: Total time spent is greater than 50% in coordination of care (as documented) at patient's floor/unit and/or counseling patient: Review of Systems Review of Systems: All systems reviewed & are unremarkable except as noted in HPI and below Exam Const: General: cooperative, no acute distress and awake Orientation/consciousness: patient oriented x3 Limitations: no limitations Resp: Effort & Inspection: normal respiratory effort and able to speak in complete sentences Auscultation: clear to auscultation bilaterally Cardio: Rate: regular rate Peripheral pulses: Peripheral pulses 2+ throughout GI: Inspection: normal to inspection Auscultation: normal bowel sounds : General: Yes bladder normal to palpation Speculum Exam - Vagina: vaginal bleeding Bimanual exam- vagina & uterus: bladder normal to palpation OB/external & speculum: vaginal bleeding Other: Fundus firm Skin: General skin exam: normal color Other: Incision approximated. No drainage. Skin glue intact. Neuro: General: patient oriented x3 Cognition (Neuro): normal cognition Speech: normal speech Extrem: General: normal to inspection Psych: Appearance: grossly normal Mental Status: mental status grossly normal Speech and movement: Normal speech and movement present Affect: normal affect Attitude: cooperative Thought process: Normal thought process present
[2023-08-20] MEDS: IBUPROFEN 600 MG TABLET PO ×2 (08:11→16:13)
[2023-08-20] MEDS: NIFEdipine 30 MG TAB.ER.24 PO (08:11)
[2023-08-20] MEDS: HYDROcodone/acetaminophen (*CRX) 5-325 MG TABLET 1 TAB PO ×2 (08:12→16:12)
[2023-08-20] MEDS: POLYSACCHARIDE IRON COMPLEX 150 MG CAPSULE PO (08:16)
[2023-08-20] MEDS: DOCUSATE SODIUM 100 MG CAPSULE PO (08:17)
[2023-08-20 12:06] VITALS: BP 144/81; PULSE 90; RESP 16; TEMP 36.9; O2SAT 100
--- NOTE | 2023-08-20 14:34 | PC.NURSE ---
This RN educated mother and father on developing a routine with baby, wake baby by unswaddling and removing tshirt, changing baby's diaper and wiping with diaper wipe even if baby was not soiled in order to wake baby for feeding. While this is being done by father, mother is to massage breast and use hand expression or hand pump to ready breast for feeding. Mother worked approximately 15 minutes and successfully latched bay using the nipple shield. She called this RN into room and ask if she could continue to just use the nipple shield to feed the baby. RN stressed the importance of trying to establish feeding without the shield and the possibility of decreased milk supply over time due to lack of stimulation. Nipple shield was removed and every effort to latch baby was unsuccessful. Mother becoming increasingly tense and appears stressed. Mother states that she is content to use the breast pump and bottle feed the baby expressed breastmilk. She states that way Dad can still feed her and have that [place] . Reassurance given that if this is the decision that she wishes to make that many women have been successful doing this method of feeding. Mother seems more relaxed and was able to pump 12cc of colostrum . Paced bottle feeding demonstrated to both mother and father. At this time baby has been fed using the mother's preferred method of feeding and mother, baby and father seem content.
--- NOTE | 2023-08-20 15:58 | PC.NURSE ---
[id number] Consulted with patient to assess needs related to . Primary RN is working with the dyad using a nipple shield. Discussed with mother her successes, concerns and any questions she has. We reviewed working with the , supporting breast, protecting her nipples with an optimal deep latch, good positioning, with and without the nipple shield. Encouraged understanding the benefits of skin to skin, responding to feeding cues, frequencies of feeding 8-12 times in 24 hours (approximately 2-3 hours), duration of feedings, milk production, intake/output feeding sheet and signs of adequate intake encouraging swallowing at the breast. Reviewed positioning and alignment, supporting breast, off-centered (asymmetrical latch) and leading with the chin with big, open, wide gape. latched optimally to the left breast in football position after attempting first with the nipple shield. Education given to the mother of how to visualize the suckling (with good rocking jaw motion) swallows (dropping of the lower jaw) and how to listen for drinking at the breast (the ka sound) which infant demonstrates well. Mother is excited about the achievement at this time. The infant was able to maintain latch without discomfort to mother. Nipple care reviewed with optimal latch, good positioning and using clean hands when touching her breast. Mother voiced understanding of the education shared, to call for assistance if the infant does not latch, difficulty waking infant to breastfeed, or if there is discomfort with . Reported to the Primary RN. Patient called for latch assistance and Primary RN responded due to LC OP appt. It was reported that they attempted to latch infant with the nipple shield and without and was unable to get infant to latch optimally with or without the nipple shield. Primary RN reported there was education reviewed about protecting her milk supply with pumping if she continued to use the nipple shield, how to properly use the tool, and mother did not need to see related to her decision to pump and feed her infant. 1605 - Checked in with mother about her decision to pump and feed her baby. Mother is content with her plan and has resource to reach out to services if she desires putting her to breast. Primary RN is present.
--- NOTE | 2023-08-20 16:28 | PC.NURSE ---
[id number] Reviewed with the parents recommended feeding for the weight of their and to follow the Digital Photographer recommendations for the growth of their infant. Primary RN is present.
[2023-08-21 09:31] VITALS: BP 151/98; PULSE 89; RESP 18; TEMP 37; O2SAT 100
== END 2023-08-20 17:21 | disposition home or self-care (01) | DRG 788 ==
LOC: ANHLDR 08-16 15:19 → ANHOB2 08-20 14:16 → ANHLDR 08-23 08:54 → ANHOB2 08-23 08:54
PROVIDERS: Advanced Practice Midwife; Admitting Provider Obstetrics & Gynecology Gynecology; PCP Family Medicine; Visit Provider Obstetrics & Gynecology Gynecology
PROC: 10D00Z1 Extraction of Products of Conception, Low, Open Approach (ICD-10-PCS; CPT 59514; principal; 2023-08-16 14:30)
DX: O10.92 Unspecified pre-existing hypertension complicating childbirth (principal); Z37.0 Single live birth; Z3A.39 39 weeks gestation of pregnancy; O62.1 Secondary uterine inertia; O69.1XX0 Labor and delivery complicated by cord around neck, with compression, not applicable or unspecified; O42.92 Full-term premature rupture of membranes, unspecified as to length of time between rupture and onset of labor; O99.52 Diseases of the respiratory system complicating childbirth; J45.909 Unspecified asthma, uncomplicated; O99.284 Endocrine, nutritional and metabolic diseases complicating childbirth; E03.9 Hypothyroidism, unspecified; O99.344 Other mental disorders complicating childbirth; F41.8 Other specified anxiety disorders
CPT/HCPCS: 36415; 80053; 82570; 84156; 85025; 86592; 86850; 86900; 86901; 88307; A9270; J0290; J0456; J1885; J2270; J2274; J2405; J2590; J2795; J7120

== ENCOUNTER 2024-05-25 11:25 | Outpatient (CLI) | payer BC, SELFPAY ==
--- NOTE | ~2024-05-25 | XR_ITS ---
XR foot RT min 3V Ordering provider: Trina Cruz MD History: . M89.8X7 - Other specified disorders of bone, ankle and foot . Comparison: None. FINDINGS: BONES: No acute fracture or dislocation. JOINT SPACES: Normal. No tarsal coalition. SOFT TISSUES: Normal. IMPRESSION: No acute osseous abnormality of the right foot. Reviewed, dictated and finalized at location A.
== END 2024-05-25 11:26 | disposition home or self-care (01) ==
LOC: ANHIMG 11:29
PROVIDERS: PCP Family Medicine; Visit Provider Family Medicine
DX: M89.8X7 Other specified disorders of bone, ankle and foot (principal)
CPT/HCPCS: 73630

== ENCOUNTER 2024-09-28 10:41 | Outpatient (CLI) | payer BC, SELFPAY ==
[2024-09-28 11:46] LABS: Hematocrit 39.1 % (37.0-47.0); Hemoglobin 12.5 g/dL (12.0-15.0); Mean Corpuscular Hemoglobin 25.8 pg (26-34); Mean Corpuscular Volume 80.6 fl (80-100); Mean Platelet Volume 9.7 fl (7.4-10.4); Platelet Count Result 350 k/mm3 (150-375); Red Blood Count 4.85 M/mm3 (4.2-5.4); Red Cell Distribution Width 13.8 % (11.5-14.5); White Blood Count 7.7 K/mm3 (4.5-10.0)
--- OUTSIDE RECORDS SUMMARY | 2024-09-28 12:14 | XMS_ITS | Clinical Summary ---
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
[2024-09-28 12:18] LABS: Free T3 5.14 pg/mL (2.32-6.09); Free T4 Free Thyroxine 1.56 ng/dL (0.78-2.19)
== END 2024-09-28 10:42 | disposition home or self-care (01) ==
LOC: ANHLAB 10:42
PROVIDERS: Student in an Organized Health Care Education/Training Program; PCP Family Medicine; Visit Provider Family Medicine
DX: E03.9 Hypothyroidism, unspecified (principal); D64.9 Anemia, unspecified
CPT/HCPCS: 36415; 84439; 84443; 84481; 85027

== ENCOUNTER 2024-11-06 16:46 | Outpatient (CLI) | payer BC, SELFPAY ==
--- NOTE | ~2024-11-06 | XR_ITS ---
Right foot Technique: AP and lateral views were obtained. Clinical History: Heel pain Findings: No acute fracture or dislocation is seen. Osseous alignment is anatomic. Joint spaces are p reserved without erosive or degenerative change. Soft tissues are unremarkable. Impression: Unremarkable right foot radiographs. Reviewed, dictated and finalized at location . Impression: Unremarkable right foot radiographs.
== END 2024-11-06 16:47 | disposition home or self-care (01) ==
PROVIDERS: PCP Family Medicine; Visit Provider Student in an Organized Health Care Education/Training Program
DX: M79.671 Pain in right foot (principal)
CPT/HCPCS: 73620

== ENCOUNTER 2024-11-24 11:14 | Outpatient (CLI) | payer BC, SELFPAY ==
--- NOTE | ~2024-11-24 | XR_ITS ---
EXAMINATION: XR chest 2V 11/24/2024 11:27 INDICATION: Cough with sore throat PROCEDURE: 2 view chest COMPARISON: 11/29/2019 FINDINGS: The lungs are clear. The cardiomediastinal silhouette is within normal limits. There are no pleural effusions. There is no pneumothorax suspected. IMPRESSION: 1: NO ACUTE CARDIOPULMONARY DISEASE. Reviewed, dictated and finalized at location A.
--- OUTSIDE RECORDS SUMMARY | 2024-11-25 12:38 | XMS_ITS | Clinical Summary ---
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
== END 2024-11-24 11:15 | disposition home or self-care (01) ==
PROVIDERS: PCP Family Medicine
DX: R05.9 Cough, unspecified (principal)
CPT/HCPCS: 71046

== ENCOUNTER 2024-12-01 11:24 | Outpatient (CLI) | payer BC, SELFPAY ==
--- OUTSIDE RECORDS SUMMARY | 2024-12-01 11:29 | XMS_ITS | Clinical Summary ---
Author Organization 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
[2024-12-01 12:31] LABS: Thyroid Stimulating Hormone 0.597 uIU/mL (0.465-4.680)
[2024-12-01 12:32] LABS: Free T4 Free Thyroxine 1.79 ng/dL (0.78-2.19)
== END 2024-12-01 11:25 | disposition home or self-care (01) ==
LOC: ANHLAB 11:25
PROVIDERS: PCP Family Medicine; Visit Provider Student in an Organized Health Care Education/Training Program
DX: E03.9 Hypothyroidism, unspecified (principal)
CPT/HCPCS: 36415; 84439; 84443